=== PATIENT | male | born 1965 | race Caucasian/White ===

== ENCOUNTER 2016-12-04 10:21 | Emergency (ER) | payer OTHER, MEDICARE ==
--- NOTE | 2016-12-04 10:35 | ED GI/GU/ABDOMINAL COMPLAINT ---
History of Present Illness General Chief Complaint: General Adult Stated Complaint: ?CLOGGED G TUBE Source: patient, ASSISTANT LABORATORY DIRECTOR Exam Limitations: no limitations Vital Signs & Intake/Output Vital Signs & Intake/Output Vital Signs Date Time Temp Pulse Resp B/P Pulse O2 O2 Flow FiO2 Ox Delivery Rate 12/04 1246 98.2 92 22 120/78 98 Room Air 12/04 1025 97.7 113 20 117/71 96 Room Air Allergies Coded Allergies: No Known Allergies (12/04/16) Reconcile Medications Acetaminophen (Tylenol Extra Strength) 500 MG TABLET 2 TAB PO Q6 PRN PAIN ( Reported) Albuterol Sulfate (Proair Respiclick) 90 MCG AER.POW.BA 1-2 PUFF PO PRN BREATHING (Reported) Guaifenesin (Mucinex) 600 MG TAB.ER.12H 1 TAB PO BID COLD (Reported) Olanzapine (Zyprexa) 15 MG TABLET 1 TAB PO QPM MENTAL HEALTH (Reported) Omeprazole 40 MG CAPSULE.DR 1 CAP PO DAILY GI (Reported) Phenytoin (Dilantin) 100 MG CAPSULE 4 CAP PO DAILY SEIZURES (Reported) Phenytoin (Dilantin) 100 MG CAPSULE 3 CAP PO QPM SEIZURES (Reported) Trazodone HCl 50 MG TABLET 1 TAB PO QPM SLEEP (Reported) Triage Note: [facility] TO ED FROM [facility] WITH STAFF MEMBER FOR CLOGGED G TUBE. LAST FLUSHED WITH WATER AROUND 0800 THIS AM WITHOUT DIFFICULTY. Triage Nurses Notes Reviewed? yes Onset: Abrupt Duration: constant Timing: single episode today Severity Numbers: 5 Location: generalized abdomen Radiation: no radiation HPI: Patient is a 51-year-old male with a past medical history OF THROAT CANCER with G-tube placement administered at [facility] on October [address] Vera. IN WHICH ASSISTANT LABORATORY DIRECTOR STATES that patient's last G-TUBE flushing was approximately 0800 this morning it was GIVEN BY caregiver states that approximately 60 mL was able to be flushed WITH MORNING MEDICATIONS however suddenly became clogged. The G-tube was placed approximately 45 days ago due to patient's throat cancer history in which this was the first G-tube ever placed for patient Denies any abdominal pain nausea vomiting fever chills. Denies any mechanism or concerns of dislodging of G-tube or trauma (LACHO DEL REAL,VIRIDIANA) Past History Travel History Traveled to [place] past 21 day No Medical History Any Pertinent Medical History? see below for history Neurological: UNSPECIFIED INTRACRANIAL INJURY Cancer(s): THROAT Surgical History Surgical History: non-contributory Psychosocial History What is your primary language Maltese Tobacco Use: Never used Family History Hx Contributory? No (VIRIIDANA ADKINS) Review of Systems Review of Systems Constitutional: Reports: no symptoms. EENTM: Reports: no symptoms. Respiratory: Reports: no symptoms. Cardiovascular: Reports: no symptoms. GI: Reports: see HPI. Genitourinary: Reports: no symptoms. Musculoskeletal: Reports: no symptoms. Skin: Reports: no symptoms. Neurological/Psychological: Reports: no symptoms. Hematologic/Endocrine: Reports: no symptoms. Immunologic/Allergic: Reports: no symptoms. All Other Systems: Reviewed and Negative (VIRIDIANA ADKINS) Physical Exam Physical Exam General Appearance: no apparent distress, alert, comfortable Gastrointestinal: normal bowel sounds, soft, non-tender, INTACT INDWELLING g- TUBE NOTED Comments: Well-developed well-nourished person in no acute distress HEENT: Normal EENT exam, Neck: Supple, no lymphadenopathy, normal range of motion without pain or tenderness Cardiovascular: Regular rate and rhythms no murmurs rubs or gallops, normal JVP Respiratory: Chest nontender. No respiratory distress.breath sounds clear to auscultation bilaterally Extremity: No edema, no calf tenderness to palpation, normal and equal pulses. Neuro: Alert, motor sensory normal, Skin: No appreciable rash on exposed skin, skin is warm and dry. Psych: Mood and affect is normal, memory and judgment is normal. Core Measures ACS in differential dx? No Severe Sepsis Present: No Septic Shock Present: No (VIRIDIANA ADKINS) Progress Differential Diagnosis: g-TUBE MALFUNCTION, Plan of Care: Orders Procedure Date/time Status [id number] VIEW 12/04 1331 Active On initial physical examination patient had no concerns of dislodged G-tube. After multiple attempts of flushing the G-tube with a mixture of COKE AND water that this was unable to be to be successfully dislodged. Then using a cytology brush after multiple attempts the G-tube was not successfully dislodged. I discussed patient with who then advised replacement of the G-tube in which she was noted through old records that upon placement of the G-tube it was noted to be 16 Macedonian placement of G-tube in which had removed the G- tube successfully without complications in which there was noted significant distal aspect of the G-tube of solid material A 16 Macedonian Dejesus catheter was then reinserted to the ostomy site without complications and which 10 mL of sterile water syringe was then injected FOR THE balloon site. The G-tube was then And is currently x-rays with gastrostomy for confirmation of placement is pending Abdominal pad and taping was applied to secure the ostomy site in G-tube The G-tube was functional X-rays confirmed gastric placement I discussed with caregiver to follow up with oncology for further evaluation treatment Upon discharge patient looks well no apparent DISTRESS nontender abdomen and had corrected malfunction of G-tube (VIRIDIANA ADKINS) Diagnostic Imaging: Viewed by Me: Radiology Read. Radiology Impression: no acute abnormality Initial ED EKG: none Comments: PATIENT: BASHIR ALMAGUER PRESENT AGE: 51 PATIENT ACCOUNT NO: [id number] : 64 LOCATION: [facility] ORDERING PHYSICIAN: CORETTA RAYMUNDO MD SERVICE DATE: 12/04/16 EXAM TYPE: RAD - [id number] VIEW EXAMINATION: XR ABDOMEN CLINICAL INDICATION: Gastrostomy tube placement COMPARISON: None. TECHNIQUE: 50 mL of Gastrografin injected into the feeding tube FINDINGS: The outline of the feeding tube projects over the stomach. A balloon is noted within the lumen of the stomach which is opacified with dense contrast. There is no extravasation of contrast visible on this single film. There is a moderate amount stool. Gas pattern is overall nonspecific. Punctate density projecting over the right renal shadow in the mid pole region may represent nonobstructing stone. A tiny radiopaque density projects over the liver as well. IMPRESSION: Feeding tube located within the stomach. DICTATED BY: SHASHI KEMP MD DATE/TIME DICTATED:12/04/161449 DECK LID FITTER:CEE DATE/TIME TRANSCRIBED:12/04/16 (VIRIDIANA ADKINS) Departure Departure Disposition: HOME OR SELF CARE Condition: Stable Clinical Impression Primary Impression: Malfunction of gastrostomy tube Referrals: PATIENT HAS NO PRIMARY CARE DR (PCP/Family) Additional Instructions: As discussed continue home medications and normal feeding times as directed. Follow-up with oncologist this week for further evaluation treatment. If symptoms worsen return to emergency room. Departure Forms: Customer Survey General Discharge Information (VIRIDIANA ADKINS) PA/BENCH SHEAR OPERATOR Co-Sign Statement Statement: ED Attending supervision documentation- x I saw and evaluated the patient. I have also reviewed all the pertinent lab results and diagnostic results. I agree with the findings and the plan of care as documented in the PA's/BENCH SHEAR OPERATOR's documentation. [] I have reviewed the ED Record and agree with the PA's/BENCH SHEAR OPERATOR's documentation. [] Additions or exceptions (if any) to the PAs/BENCH SHEAR OPERATOR's note and plan are summarized below: [] (BREANNE MELGAR,CORETTA)
[2016-12-04] MEDS ORDERED: TRAZODONE HCL50 M1 PO (11:14)
[2016-12-04] MEDS ORDERED: MUCINEX600 M1 PO (11:15)
[2016-12-04] MEDS ORDERED: PROAIR RESPICL90 MCG PO (11:15)
[2016-12-04] MEDS ORDERED: TYLENOL EXTRA500 M2 PO (11:16)
[2016-12-04] MEDS ORDERED: DILANTIN100 M1 PO ×2 (11:16→11:17)
[2016-12-04] MEDS ORDERED: ZYPREXA15 M1 PO (11:17)
[2016-12-04] MEDS ORDERED: OMEPRAZOLE40 M1 PO (11:18)
[2016-12-04 12:46] VITALS: BP 120/78
--- NOTE | 2016-12-04 14:59 | RADIOLOGY REPORT ---
EXAMINATION: XR ABDOMEN CLINICAL INDICATION: Gastrostomy tube placement COMPARISON: None. TECHNIQUE: 50 mL of Gastrografin injected into the feeding tube FINDINGS: The outline of the feeding tube projects over the stomach. A balloon is noted within the lumen of the stomach which is opacified with dense contrast. There is no extravasation of contrast visible on this single film. There is a moderate amount stool. Gas pattern is overall nonspecific. Punctate density projecting over the right renal shadow in the mid pole region may represent nonobstructing stone. A tiny radiopaque density projects over the liver as well. IMPRESSION: Feeding tube located within the stomach.
== END 2016-12-04 15:16 ==
LOC: ERH 10:21
DX: K94.23 Gastrostomy malfunction (principal)
CPT/HCPCS: 74000

== ENCOUNTER 2017-01-05 19:25 | Emergency (ER) | payer OTHER, MEDICARE ==
[~2017-01-05 19:25] MED LIST: DILANTIN100 M1 PO; MUCINEX600 M1 PO; OMEPRAZOLE40 M1 PO; PROAIR RESPICL90 MCG PO; TRAZODONE HCL50 M1 PO; TYLENOL EXTRA500 M2 PO; ZYPREXA15 M1 PO
[2017-01-05 22:15] LABS: ABSOLUTE BASOPHIL COUNT 0 /CUMM (0.0-0.2); ABSOLUTE EOSINOPHIL COUNT 0.1 /CUMM (0.0-0.7); ABSOLUTE GRANULOCYTE CT 4.7 /CUMM (1.4-6.5); ABSOLUTE LYMPH COUNT 0.2 /CUMM (1.2-3.4); ABSOLUTE MONOCYTE COUNT 0.4 /CUMM (0.10-0.60); BASOPHIL % 0.4 % (0.0-2.0); HEMATOCRIT 36.2 % (42-52); MEAN CORPUSCULAR HGB 32.8 PG (27.0-31.0); MEAN CORPUSCULAR HGB CONC 33.3 G/DL (33.0-37.0); MEAN CORPUSCULAR VOLUME 98.3 FL (80.0-94.0); MEAN PLATELET VOLUME 7.2 FL (7.4-10.4); PLATELET COUNT 290 /CUMM (130-400); RBC DISTRIBUTION WIDTH 19.1 % (11.5-14.5); RED BLOOD CELL CT 3.68 /CUMM (4.70-6.10); WHITE BLOOD CELL COUNT 5.4 /CUMM (4.8-10.8)
--- NOTE | 2017-01-05 22:16 | ED GI/GU/ABDOMINAL COMPLAINT ---
History of Present Illness General Chief Complaint: Nausea, Vomiting, Diarrhea Stated Complaint: VOMTTING, NAUSEOUS Source: patient, family, W10 Exam Limitations: poor historian Vital Signs & Intake/Output Vital Signs & Intake/Output Vital Signs Date Time Temp Pulse Resp B/P Pulse O2 O2 Flow FiO2 Ox Delivery Rate 01/06 0010 97.1 91 16 124/79 96 Room Air 01/05 2000 96.8 93 16 130/80 95 Room Air Allergies Coded Allergies: No Known Allergies (12/04/16) Reconcile Medications Acetaminophen (Tylenol Extra Strength) 500 MG TABLET 2 TAB PO Q6 PRN PAIN ( Reported) Albuterol Sulfate (Proair Respiclick) 90 MCG AER.POW.BA 1-2 PUFF PO PRN BREATHING (Reported) Guaifenesin (Mucinex) 600 MG TAB.ER.12H 1 TAB PO BID COLD (Reported) Olanzapine (Zyprexa) 15 MG TABLET 1 TAB PO QPM MENTAL HEALTH (Reported) Omeprazole 40 MG CAPSULE.DR 1 CAP PO DAILY GI (Reported) Phenytoin (Dilantin) 100 MG CAPSULE 4 CAP PO DAILY SEIZURES (Reported) Phenytoin (Dilantin) 100 MG CAPSULE 3 CAP PO QPM SEIZURES (Reported) Trazodone HCl 50 MG TABLET 1 TAB PO QPM SLEEP (Reported) Triage Note: TRIAGE; PT TO ED, STATES THAT HE HAS A G-TUBE AND FOR THE PAST FEW MONTHS WHEN THE FEED HIM HE GETS SICK. STATES HE FEELS NAUSEOUS AT THIS TIME WELL. DENIES ANY ABD PAIN AT THIS TIME. PT HAS HX OF COMPLETE BLINDNESS. Triage Nurses Notes Reviewed? yes Onset: Gradual Duration: day(s): (1) Timing: no prior history Quality/Severity: vomiting Location: generalized abdomen Radiation: no radiation Activities at Onset: eating Past Sexual History: Unobtainable at this time HPI: Patient is a 51-year-old male with a G-tube presenting to the emergency department from a half-way with half-way workers with chief complaint of vomiting. According to half-way staff patient has been vomiting after trying to feed him through the G-tube for breakfast and lunch this morning. They did not try to feed him this evening for dinner because he was saying he was not feeling well. Patient denying any abdominal pain. No diarrhea. No documented fevers at the half-way. (SUSAN TRAN) Past History Travel History Traveled to [place] past 21 day No Medical History Any Pertinent Medical History? 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 No (SUSAN TRAN) Review of Systems Review of Systems Constitutional: Reports: no symptoms. Comments Review of systems: See HPI, All other systems negative. Constitutional, no chills fever or weight loss HEENT: No visual changes no sore throat no congestion Cardiovascular: No chest pain ,palpitation Skin, no jaundice no rashes Respiratory: No dyspnea cough sputum or hemoptysis GI: No diarrhea : No dysuria No hematuria Muscle skeletal: no back pain, no neck pain, Neurologic: No numbness no increased confusion Psych: No stress anxiety Immunology: No splenectomy or history of AIDS (SUSAN TRAN) Physical Exam Physical Exam General Appearance: well developed/nourished, no apparent distress, alert, awake , comfortable Gastrointestinal: normal bowel sounds, soft, non-tender Comments: Well-developed well-nourished person in no acute distress HEENT: Nose is atraumatic. Neck: Normal inspection Back: Nontender, no CVA tenderness. Cardiovascular: Regular rate and rhythms no murmurs rubs or gallops, normal JVP Respiratory: No respiratory distress.breath sounds clear to auscultation bilaterally Abdomen: Soft, nontender nondistended, no appreciable organomegaly. Normal bowel sounds. No ascites. G-tube in place. No surrounding erythema or edema. Extremity: No edema Neuro: Alert oriented x3 Skin: No appreciable rash on exposed skin, skin is warm and dry. Psych: Mood and affect is normal, memory and judgment is normal. Core Measures ACS in differential dx? No Severe Sepsis Present: No Septic Shock Present: No (SUSAN TRAN) Progress Differential Diagnosis: gastritis, viral syndrome, Sbo, overfeeding Plan of Care: Orders Procedure Date/time Status COMPREHENSIVE METABOLIC PANEL 01/05 2051 Complete CBC WITHOUT DIFFERENTIAL 01/05 2051 Complete Laboratory Tests 01/05/17 2209: Anion Gap 12, Estimated GFR > 60, BUN/Creatinine Ratio 22.5, Glucose 95, Calcium 10.2, Total Bilirubin 0.6, AST 32, ALT 40, Alkaline Phosphatase 101, Total Protein 7.3, Albumin 4.4, Globulin 2.9, Albumin/Globulin Ratio 1.5, CBC w Diff NO MAN DIFF REQ, RBC 3.68 L, MCV 98.3 H, MCH 32.8 H, RDW 19.1 H, MPV 7.2 L, Gran % 86.7 H, Lymphocytes % 4.1 L, Monocytes % 7.8, Eosinophils % 1.0, Basophils % 0.4, Absolute Granulocytes 4.7, Absolute Lymphocytes 0.2 L, Absolute Monocytes 0.4, Absolute Eosinophils 0.1, Absolute Basophils 0, PUBS MCHC 33.3 Initial ED EKG: none Comments: Abdomen soft nontender with normal active bowel sounds. Unlikely SPO. Minimal to no drainage from Dejesus bag with gravity. Patient was not nauseous and has not vomited once since arrival. Blood work is unremarkable. Caregivers for follow-up with a PCP or return for worsening symptoms. Patient nontoxic. Discussed with Dr. gutierrez and he agrees to plan. (SUSAN TRAN) Departure Departure Time of Disposition: 2351 Disposition: HOME OR SELF CARE Condition: Stable Clinical Impression Primary Impression: Vomiting Qualifiers: Vomiting type: unspecified Vomiting Intractability: non-intractable Nausea presence: unspecified Qualified Code: R11.10 - Vomiting, unspecified Referrals: UNKNOWN (PCP/Family) Additional Instructions: Follow-up with your primary care physician call to make an appointment. Continue tube feedings as scheduled. Return for worsening symptoms or concerns. Departure Forms: Customer Survey General Discharge Information (SUSAN TRAN) PA/AGENCY CASHIER Co-Sign Statement Statement: ED Attending supervision documentation- [] I saw and evaluated the patient. I have also reviewed all the pertinent lab results and diagnostic results. I agree with the findings and the plan of care as documented in the PA's/AGENCY CASHIER's documentation. x I have reviewed the ED Record and agree with the PA's/AGENCY CASHIER's documentation. [] Additions or exceptions (if any) to the PAs/AGENCY CASHIER's note and plan are summarized below: [] (BREANNE MELGAR,CORETTA)
[2017-01-05 22:19] LABS: GRANULOCYTE % 86.7 % (42.2-75.2)
[2017-01-06 00:10] VITALS: BP 124/79
== END 2017-01-06 00:10 ==
LOC: ERH 19:25
PROVIDERS: Emergency Medicine
DX: R11.10 Vomiting, unspecified (principal)

== ENCOUNTER 2017-02-08 10:47 | Inpatient (IN) | payer OTHER, MEDICARE ==
[~2017-02-08] VITALS: Ht 182.9 cm; Wt 72.6 kg
[2017-02-08] MEDS ORDERED: FENTANYL1 EAC3 TOP (11:30)
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
--- NOTE | 2017-02-08 12:43 | RADIOLOGY REPORT ---
EXAMINATION: XR PORTABLE CHEST CLINICAL INFORMATION: Weakness. COMPARISON: CT chest dated 01/27/2017. TECHNIQUE: Portable AP view of the chest was obtained. FINDINGS: Right-sided Port-A-Cath with the tip in the superior vena cava. New patchy focal groundglass opacity right midlung may represent evolving pneumonia in the appropriate clinical setting. Left lung is clear. Bony thorax is intact. Subtle calcific density projecting upon the right paratracheal region. IMPRESSION: New patchy airspace opacity right midlung may represent evolving pneumonia in the appropriate clinical setting. Follow-up chest x-ray after treatment recommended.
[2017-02-08 12:57] LABS: ABSOLUTE BASOPHIL COUNT 0 /CUMM (0.0-0.2); ABSOLUTE EOSINOPHIL COUNT 0 /CUMM (0.0-0.7); ABSOLUTE GRANULOCYTE CT 12.3 /CUMM (1.4-6.5); ABSOLUTE LYMPH COUNT 0.4 /CUMM (1.2-3.4); ABSOLUTE MONOCYTE COUNT 0.7 /CUMM (0.10-0.60); BASOPHIL % 0 % (0.0-2.0); EOSINOPHIL % 0.2 % (0-5); HEMATOCRIT 34.4 % (42-52); MEAN CORPUSCULAR HGB 33.4 PG (27.0-31.0); MEAN CORPUSCULAR HGB CONC 33.3 G/DL (33.0-37.0); MEAN CORPUSCULAR VOLUME 100.4 FL (80.0-94.0); MEAN PLATELET VOLUME 6.9 FL (7.4-10.4); RED BLOOD CELL CT 3.43 /CUMM (4.70-6.10); WHITE BLOOD CELL COUNT 13.4 /CUMM (4.8-10.8)
[2017-02-08 13:10] LABS: GRANULOCYTE % 91.9 % (42.2-75.2); PLATELET COUNT 401 /CUMM (130-400)
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
--- NOTE | 2017-02-08 16:01 | Admission Certification ---
Admission Certification Certification Statement - As attending physician, I certify that at the time of - admission, based on clinical presentation, severity of - symptoms, need for further diagnostic testing and - therapeutic interventions, and risk of adverse outcomes - without in-hospital treatment, in my clinical assessment, - this patient requires an acute hospital stay for a minimum - of two nights or longer. I have also considered psychsocial - factors such as support system, advanced age, financial - issues, cognitive issues, and failed out-patient treatments, - past re-admission history, safety of patient, and lack of - compliance as applicable. Specific rationale supporting this admission is: aspiration pneumonia.
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
[2017-02-08 23:00] VITALS: BP 104/60
[2017-02-09 06:43] VITALS: BP 102/58
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
[2017-02-09 08:50] LABS: ABSOLUTE BASOPHIL COUNT 0 /CUMM (0.0-0.2); ABSOLUTE EOSINOPHIL COUNT 0.1 /CUMM (0.0-0.7); ABSOLUTE GRANULOCYTE CT 3.5 /CUMM (1.4-6.5); ABSOLUTE LYMPH COUNT 0.4 /CUMM (1.2-3.4); ABSOLUTE MONOCYTE COUNT 0.4 /CUMM (0.10-0.60); BASOPHIL % 0.3 % (0.0-2.0); EOSINOPHIL % 1.5 % (0-5); GRANULOCYTE % 79.9 % (42.2-75.2); HEMATOCRIT 29.6 % (42-52); MEAN CORPUSCULAR HGB 33.7 PG (27.0-31.0); MEAN CORPUSCULAR HGB CONC 33.4 G/DL (33.0-37.0); MEAN CORPUSCULAR VOLUME 100.6 FL (80.0-94.0); MEAN PLATELET VOLUME 7.4 FL (7.4-10.4); PLATELET COUNT 327 /CUMM (130-400); RBC DISTRIBUTION WIDTH 13.5 % (11.5-14.5); RED BLOOD CELL CT 2.94 /CUMM (4.70-6.10)
[2017-02-09 09:04] LABS: WHITE BLOOD CELL COUNT 4.4 /CUMM (4.8-10.8)
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
[2017-02-09 14:43] VITALS: BP 118/70
--- NOTE | 2017-02-09 15:15 | PN- Att Addend ---
Attending MD Review Statement Attending Statement Attending MD Statement: examined this patient, discuss w/resident/PA/LICENSED LOAN OFFICER ASSISTANT, agreed w/resident/PA/LICENSED LOAN OFFICER ASSISTANT, reviewed EMR data (avail), discussed w/nursing Attending Assessment/Plan: Laboratory Tests 02/09/17 0700: Anion Gap 6, Estimated GFR > 60, BUN/Creatinine Ratio 15.0, Vitamin B12 527, Folate 8.2, CBC w Diff NO MAN DIFF REQ, RBC 2.94 L, MCV 100.6 H, MCH 33.7 H, RDW 13.5, MPV 7.4, Gran % 79.9 H, Lymphocytes % 9.1 L, Monocytes % 9.2, Eosinophils % 1.5, Basophils % 0.3, Absolute Granulocytes 3.5, Absolute Lymphocytes 0.4 L, Absolute Monocytes 0.4, Absolute Eosinophils 0.1, Absolute Basophils 0, PUBS MCHC 33.4 02/08/17 1900: Urinalysis HEAVY H, Urine Color YEL, Urine Clarity HAZY H, Urine pH 7.5, Ur Specific [place] 1.015, Urine Protein TRACE H, Urine Ketones TRACE H, Urine Nitrite POS H, Urine Bilirubin NEG, Urine Urobilinogen 0.2, Ur Leukocyte Esterase MOD H, Ur Microscopic SEDIMENT EXAMINED, Urine WBC 10-15 H, Urine Bacteria FEW H, Urine Hemoglobin NEG, Urine Glucose NEG Vital Signs Date Time Temp Pulse Resp B/P Pulse O2 O2 Flow FiO2 Ox Delivery Rate 02/09 1443 97.4 79 20 118/70 95 Room Air 02/09 0643 98.7 79 18 102/58 97 Room Air 02/08 2300 98.3 81 20 104/60 97 Room Air 02/08 2131 97.8 86 20 101/68 97 Room Air 02/08 1832 97.3 84 16 107/73 96 Room Air 02/08 1602 98.6 87 18 106/63 95 Patient seen and examined at bedside. Discussed with patient the care plan. Next Aspiration pneumonia-we'll continue with IV Unasyn for now. White count seems to be improving. Patient remains afebrile. Patient resumed on his tube feeds as well as seen by speech therapist and they recommended nectar thick liquids along with grounded diet. Disposition-possible discharge tomorrow on oral antibiotics. UTI-follow up on urine cultures. Continue on Unasyn.
--- NOTE | 2017-02-09 17:32 | Patient Discharge Instructions ---
Discharge Instructions General Discharge Information You were seen/treated for: Aspiration pneumonia Special Instructions: Please take medications as prescribed. Please continue tube feeding as instructed. Tube feeding instructions: CONTINUOUS FEED JEVITY 1.5, START RATE AT 50 ML/HR, THEN INCREASE TO A GOAL RATE OF 70 ML/HR CONTINOUS FEED, AND WATER FLUSH 225 ml EVERY 4 HRS. Please continue to try feeding by mouth as well with consistency of solids as mechanical ground food, and consistency of liquids as nectar thick liquid only until change suggested by a speech therapist. We could not locate your primary care physician at this point of time, we recommend you to be in touch or try to find a primary care physician as soon as possible and get a follow-up within 7-10 days of discharge. Follow-up with your oncologist Dr. Navarro within 1-2 weeks of discharge. Return to emergency if symptoms worsen. Diet Continue normal diet: No Recommended Diet: tube feedings as instructed, oral feedings, as instructed above Activity Full Activity/No Limits: No Activity Self Limited: Yes Acute Coronary Syndrome Inclusion Criteria At DC or during hospital stay patient has or had the following: ACS DIAGNOSIS No Discharge Core Measures Meds if any: Prescribed or Continued at Discharge Meds if any: NOT Prescribed or Continued at Discharge Congestive Heart Failure Inclusion Criteria At DC or during hospital stay patient has or had the following: CHF DIAGNOSIS No Discharge Core Measures Meds if any: Prescribed or Continued at Discharge Meds if any: NOT Prescribed or Continued at Discharge Cerebrovascular accident Inclusion Criteria At DC or during hospital stay patient has or had the following: CVA/TIA Diagnosis No Discharge Core Measures Meds if any: Prescribed or Continued at Discharge Meds if any: NOT Prescribed or Continued at Discharge Venous thromboembolism Inclusion Criteria VTE Diagnosis No VTE Type NONE VTE Confirmed by (Test) NONE Discharge Core Measures - Per Current guidelines, there needs to be overlap - treatment for the first 5 days of Warfarin therapy. - If discharged on Warfarin prior to 5 days of - overlap therapy, the patient will need to be - assessed for post discharge needs including - *Post discharge parental anticoagulation - *Warfarin and/or parental anticoagulation education - *Follow up date to check INR post discharge At least 5 days overlap therapy as Inpatient No Meds if any: Prescribed or Continued at Discharge Note: Overlap Therapy is Warfarin and Anticoagulant Meds if any: NOT Prescribed or Continued at Discharge
[2017-02-09 22:48] VITALS: BP 100/52
[2017-02-10 06:42] VITALS: BP 120/78
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
[2017-02-10 09:27] LABS: ABSOLUTE BASOPHIL COUNT 0 /CUMM (0.0-0.2); ABSOLUTE EOSINOPHIL COUNT 0.1 /CUMM (0.0-0.7); ABSOLUTE GRANULOCYTE CT 4.6 /CUMM (1.4-6.5); ABSOLUTE LYMPH COUNT 0.3 /CUMM (1.2-3.4); ABSOLUTE MONOCYTE COUNT 0.4 /CUMM (0.10-0.60); BASOPHIL % 0.3 % (0.0-2.0); EOSINOPHIL % 1.8 % (0-5); HEMATOCRIT 30.8 % (42-52); MEAN CORPUSCULAR HGB 33.6 PG (27.0-31.0); MEAN CORPUSCULAR HGB CONC 33.5 G/DL (33.0-37.0); MEAN CORPUSCULAR VOLUME 100.3 FL (80.0-94.0); MEAN PLATELET VOLUME 6.9 FL (7.4-10.4); RBC DISTRIBUTION WIDTH 13.8 % (11.5-14.5); RED BLOOD CELL CT 3.07 /CUMM (4.70-6.10); WHITE BLOOD CELL COUNT 5.4 /CUMM (4.8-10.8)
[2017-02-10 10:16] LABS: GRANULOCYTE % 83.8 % (42.2-75.2); PLATELET COUNT 403 /CUMM (130-400)
[2017-02-10] MEDS ORDERED: BACTRIM DS TAB1 EACH PO (11:13)
[2017-02-10] MEDS ORDERED: AUGMENTIN 875-1 EACH PO (14:21)
[2017-02-10 15:23] VITALS: BP 120/70
--- NOTE | 2017-02-10 15:53 | PN- Att Addend ---
Attending MD Review Statement Attending Statement Attending MD Statement: examined this patient, discuss w/resident/PA/ENVELOPE ADDRESSER, agreed w/resident/PA/ENVELOPE ADDRESSER, reviewed EMR data (avail), discussed w/nursing, discussed w/ case mgmt Attending Assessment/Plan: Laboratory Tests 02/10/17 0710: Anion Gap 8, Estimated GFR > 60, BUN/Creatinine Ratio 11.7, CBC w Diff NO MAN DIFF REQ, RBC 3.07 L, MCV 100.3 H, MCH 33.6 H, RDW 13.8, MPV 6.9 L, Gran % 83.8 H, Lymphocytes % 6.2 L, Monocytes % 7.9, Eosinophils % 1.8, Basophils % 0.3, Absolute Granulocytes 4.6, Absolute Lymphocytes 0.3 L, Absolute Monocytes 0.4, Absolute Eosinophils 0.1, Absolute Basophils 0, PUBS MCHC 33.5 Vital Signs Date Time Temp Pulse Resp B/P Pulse O2 O2 Flow FiO2 Ox Delivery Rate 02/10 1523 98.1 80 20 120/70 96 02/10 0642 98.2 85 18 120/78 96 Room Air 02/09 2248 98.6 80 20 100/52 95 Room Air Patient seen and examined at bedside. Discussed with patient the care plan. Aspiration pneumonia-on IV Unasyn and responding well. White count seems to be improving. Patient remains afebrile. Patient resumed on his tube feeds as well as seen by speech therapist and they recommended nectar thick liquids along with grounded diet. Will switch his abx to po augmenting tomorrow morning. UTI-urine cultures growing Klebsiella. Will be switched to augmentin starting tomorrow. Disoposition.-Patient will be discharged back to the facility on Monday. Cannot go back to the facility over the weekend as the nursing staff over there needs to be trained for the tube feeds.
[2017-02-10 22:54] VITALS: BP 100/60
[2017-02-11 06:54] VITALS: BP 100/56
[2017-02-11 08:17] LABS: ABSOLUTE BASOPHIL COUNT 0 /CUMM (0.0-0.2); ABSOLUTE EOSINOPHIL COUNT 0.1 /CUMM (0.0-0.7); ABSOLUTE GRANULOCYTE CT 4.2 /CUMM (1.4-6.5); ABSOLUTE LYMPH COUNT 0.5 /CUMM (1.2-3.4); ABSOLUTE MONOCYTE COUNT 0.5 /CUMM (0.10-0.60); BASOPHIL % 0.2 % (0.0-2.0); EOSINOPHIL % 1.7 % (0-5); GRANULOCYTE % 79.8 % (42.2-75.2); HEMATOCRIT 35.1 % (42-52); MEAN CORPUSCULAR HGB 33.5 PG (27.0-31.0); MEAN CORPUSCULAR HGB CONC 33.3 G/DL (33.0-37.0); MEAN CORPUSCULAR VOLUME 100.6 FL (80.0-94.0); MEAN PLATELET VOLUME 7.3 FL (7.4-10.4); PLATELET COUNT 451 /CUMM (130-400); RBC DISTRIBUTION WIDTH 13.5 % (11.5-14.5); RED BLOOD CELL CT 3.48 /CUMM (4.70-6.10); WHITE BLOOD CELL COUNT 5.3 /CUMM (4.8-10.8)
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
[2017-02-11 14:34] VITALS: BP 106/64
[2017-02-11 21:55] VITALS: BP 102/62
[2017-02-12 07:45] VITALS: BP 96/60
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
[2017-02-12 14:24] VITALS: BP 96/60
[2017-02-12 22:21] VITALS: BP 100/58
[2017-02-13 06:35] VITALS: BP 100/60
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
[2017-02-13 14:24] VITALS: BP 114/60
--- NOTE | 2017-02-13 14:51 | Discharge Summary ---
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 In the ED vitals showed a white count of 13.4, H&H 11.4/34, MCV 100, platelet count 401, sodium 133, glucose 100, negative troponins. UA showed trace proteins, trace ketones, nitrate positive, white count 10-15, few bacteria. Chest x-ray:New patchy airspace opacity right midlung may represent evolving pneumonia Patient was treated in the hospital for: # Sepsis secondary to aspiration pneumonia due to oral feeding instead of the PEG tube: Patient was admitted to the [facility] floorand started on IV fluids and IV Unasyn for aspiration pneumonia. He had a formal swallow eval and was recommended mechanical soft ground diet with nectar thin liquids to the mouth. PEG feeds were continued. Urine cultures were positive for Klebsiella pneumoniae. Patient remained afebrile in the hospital and the white count trended down.blood and sputum cultures did not have anygrowth. Patient was transitioned to by mouth Augmentinto to complete a total course of 7 days. #Tube feeding was restarted after nutritional consult, speech therapist was consulted for swallow evaluation suggested to keep the patient on nectar thick liquid and mechanical ground solids food but the patient is reluctant to have any kind of meal by mouth. Tube feeding instructions: CONTINUOUS FEEDS JEVITY 1.5 AT 50 ML/ HR , THEN INCREASE TO A GOAL RATE OF 70 ML/HR , WATER FLUSH 225 ml EVERY 4 HRS. Please continue to try feeding by mouth as well with consistency of solids as mechanical ground food, and consistency of liquids as nectar thick liquid only until change suggested by a speech therapist. #History of esophageal cancer: The last chemotherapy was finished on 12/15/16. (patient's oncologist) saw the patient in the hospital and decrease the fentanyl patch dose from 50 g to 25. No recommendations were made from the oncology point. Patient was asked to follow up with oncologist within 1-2 weeks of discharge. #Continued on home medications including phenytoin, Zyprexa, trazodone. #DVT prophylaxis with subcutaneous Lovenox #Full CODE STATUS Allergies: Coded Allergies: No Known Allergies (12/04/16) Disposition Summary Disposition Principal Diagnosis: Aspiration pneumonia Additional Diagnosis: History of esophageal cancer Discharge Disposition: home or self care Discharge Instructions General Discharge Information Code Status: Full Code Patient's Diet: Tube feeding instructions: JEVITY 1.5, WATER FLUSH 155 ml BEFORE AND AFTER FEEDING; TUBE FEEDING 420 ML ( 1- 3/4 CAN FOUR TIMES A DAY. Please continue to try feeding by mouth as well with consistency of solids as mechanical ground food, and consistency of liquids as nectar thick liquid only until change suggested by a speech therapist. Patient's Activity: as tolerated Follow-Up Instructions/Appts: Please continue to try feeding by mouth as well with consistency of solids as mechanical ground food, and consistency of liquids as nectar thick liquid only until change suggested by a speech therapist. We could not locate your primary care physician at this point of time, we recommend you to be in touch or try to find a primary care physician as soon as possible and get a follow-up within 7-10 days of discharge. Follow-up with your oncologist Dr. Navarro within 1-2 weeks of discharge. Medications at Discharge Discharge Medications: Stop taking the following medications: Phenytoin (Dilantin) 100 MG CAPSULE ORAL DAILY Phenytoin (Dilantin) 100 MG CAPSULE ORAL Every night Fentanyl (Fentanyl) 50 MCG/HOUR PATCH.TD72 On the skin Every 3 days Start taking the following new medications: Phenytoin (Phenytoin) 100 MG/4 ML ORAL.SUSP 300 Milligram PEG TUBE Every night Days = 30 No Refills Comments: Last Taken:02/15/17 Time:2000 Phenytoin (Phenytoin) 100 MG/4 ML ORAL.SUSP 400 Milligram PEG TUBE DAILY Days = 30 No Refills Comments: Last Taken:02/16/17 Time:1000 Fentanyl (Fentanyl) 25 MCG/HOUR PATCH.TD72 25 Microgram On the skin Every 3 days as needed for SEVERE PAIN Qty = 15 No Refills Instructions: USE ONLY ONCE IN THREE DAYS, CAN LAST FOR 72 HOURS. DO NOT USE MORE OFTEN THAN EVERY 72 HOURS. Comments: Last Taken:02/14/17 Time:1400 The following medications have been changed: Old: Trazodone HCl (Trazodone HCl) 50 MG TABLET 1 Tablet ORAL Every night New: Trazodone HCl (Trazodone HCl) 50 MG TABLET 1 Tablet PEG TUBE Every night Days = 30 Comments: Last Taken:02/15/17 Time:1999 Old: Olanzapine (Zyprexa) 15 MG TABLET 1 Tablet ORAL Every night New: Olanzapine (Zyprexa) 15 MG TABLET 1 Tablet PEG TUBE Every night Days = 30 Comments: Last Taken:02/15/17 Time:1999 Copies To: DEVIKA MELGAR,FABIAN
[2017-02-13 22:34] VITALS: BP 100/60
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
[2017-02-14 06:55] VITALS: BP 104/60
[2017-02-14 14:42] VITALS: BP 102/60
[2017-02-14 22:48] VITALS: BP 112/68
[2017-02-15 06:30] VITALS: BP 110/64
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
[2017-02-15 14:45] VITALS: BP 110/70
[2017-02-15 22:28] VITALS: BP 112/70
[2017-02-16 07:30] VITALS: BP 110/70
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
[2017-02-16] MEDS ORDERED: FENTANYL1 EAC2 TOP (11:08)
[2017-02-16 11:16] VITALS: BP 110/70
[2017-02-16] MEDS ORDERED: TRAZODONE HCL50 M1 PEG (11:24)
[2017-02-16] MEDS ORDERED: ZYPREXA15 M1 PEG (11:24)
[2017-02-16] MEDS ORDERED: PHENYTOIN100 MG/4 M PEG ×2 (11:24)
[2017-02-16 14:51] VITALS: BP 108/76
== END 2017-02-16 16:10 | DRG 178 ==
LOC: ENRESERVTM → ENRESERVDT → ERH 10:47 → ENPENDDIS 13:24 → ERHI 13:24 → 2NA 13:24
PROVIDERS: Physician Assistant; Student in an Organized Health Care Education/Training Program; ADMIT Internal Medicine
DX: J69.0 Pneumonitis due to inhalation of food and vomit (principal); E87.1 Hypo-osmolality and hyponatremia; C10.9 Malignant neoplasm of oropharynx, unspecified; Z87.820 Personal history of traumatic brain injury; H54.8 Legal blindness, as defined in USA; F17.200 Nicotine dependence, unspecified, uncomplicated; Z93.1 Gastrostomy status; Z85.01 Personal history of malignant neoplasm of esophagus
CPT/HCPCS: 2NASP; 36415; 74230; 81001; 82436; 87040; 87070; 87086; 93005; 93010; 96361; 96374; 96375; J1650; J1815; J7042

== ENCOUNTER 2017-03-15 18:53 | Emergency (ER) | payer OTHER, MEDICARE ==
[~2017-03-15] VITALS: Ht 182.9 cm; Wt 68.0 kg
[~2017-03-15 18:53] MED LIST changes: +AUGMENTIN 875-1 EACH PO; +BACTRIM DS TAB1 EACH PO; +FENTANYL1 EAC2 TOP; +FENTANYL1 EAC3 TOP; +PHENYTOIN100 MG/4 M PEG; +TRAZODONE HCL50 M1 PEG; +ZYPREXA15 M1 PEG
[2017-03-15 19:07] VITALS: BP 114/83
--- NOTE | 2017-03-15 20:18 | ED GENERAL ADULT ---
History of Present Illness General Chief Complaint: General Adult Stated Complaint: PT FEEDING TUBE IS CLOGGED Source: patient, old records, friend (waste salvager) Exam Limitations: no limitations Vital Signs & Intake/Output Vital Signs & Intake/Output Vital Signs Date Time Temp Pulse Resp B/P B/P Pulse O2 O2 Flow FiO2 Mean Ox Delivery Rate 03/15 1907 97.0 95 16 114/83 98 Room Air Allergies Coded Allergies: No Known Allergies (12/04/16) Reconcile Medications Fentanyl 25 MCG/HOUR PATCH.TD72 25 MCG TOP Q3D PRN SEVERE PAIN USE ONLY ONCE IN THREE DAYS, CAN LAST FOR 72 HOURS. DO NOT USE MORE OFTEN THAN EVERY 72 HOURS. Olanzapine (Zyprexa) 15 MG TABLET 1 TAB PEG QPM MENTAL HEALTH Phenytoin 100 MG/4 ML ORAL.SUSP 300 MG PEG QPM SEIZURE Phenytoin 100 MG/4 ML ORAL.SUSP 400 MG PEG DAILY SEIZURE Trazodone HCl 50 MG TABLET 1 TAB PEG QPM SLEEP Triage Note: TRIAGE: FROM [facility] FOR CLOGGED G-TUBE, STAFF UNABLE TO CLEAR IT WITH [facility]. STAFF BELIEVES IT WAS PLACED AT [facility]. SKIN AROUND SITE APPEARS INTACT AND NO S/S INFX. DENIES PAIN. PLACED FOUR MONTHS AGO DUE TO THROAT CA, COMPLETED CHEMO AND RAD TX. LEGALLY BLIND. ABLE TO CONVERSATE WITH STAFF WITH HOARSE VOICE. Triage Nurses Notes Reviewed? yes Onset: Abrupt Duration: hour(s): (7), constant Timing: recent history Injury Environment: home Severity: mild Severity Numbers: 1 No Modifying Factors: none Associated Symptoms: denies HPI: 51-year-old male with history of throat cancer requiring a G-tube that was placed 4 months ago presents with the halfway waste salvager after they state the feeding tube became clogged at around 1 PM this afternoon. The patient has had history of similar episodes in the past the attempted to clear with [facility] without improvement. The patient otherwise is without any complaints no fever no chills no rashes to his skin there are no modifying factors or associated symptoms otherwise. This is happened before requiring temporary Dejesus catheter placement . (DOUGIE DEL REAL,VIRIDIANA) Past History Travel History Traveled to [place] past 21 day No Medical History Any Pertinent Medical History? 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 No (VIRIDIANA ZHOU) Review of Systems Review of Systems Constitutional: Reports: see HPI. All Other Systems: Reviewed and Negative Comments Review of systems: See HPI, All other systems negative. Constitutional, no chills no fever, no malaise HEENT: No visual changes no sore throat no congestion Cardiovascular: No chest pain , no palpitation Skin: no rashes, no change in skin Respiratory: No dyspnea no cough GI: No nausea no vomiting, no diarrhea : No dysuria No hematuria Muscle skeletal: No joint pain, no back pain, no neck pain, Neurologic: no headache Psych: No stress no depression,. Heme/endocrine: No bruising no bleeding Immunology: No lymphadenopathy (VIRIDIANA ZHOU) Physical Exam Physical Exam General Appearance: well developed/nourished, no apparent distress, alert Comments: Well-developed well-nourished patient in no apparent distress. HEENT: Atraumatic, extraocular motion intact Neck: Supple, FROM Back: FROM Cardiovascular: Regular rate and rhythms no murmurs rubs or gallops, Respiratory: No respiratory distress. Patient speaking in full complete sentences. Breath sounds clear to auscultation bilaterally: NO W/R/R Abdomen: Soft Nontender G-tube in place no surrounding erythema induration or fluctuance Nontender normal bowel sounds Extremities: full range of motion Neuro: awake, alert, and oriented to person, place and time. There were no obvious focal neurologic abnormalities. Skin: Warm & dry;No appreciable rash on exposed skin Psych: Mood affect normal, normal memory normal judgment. Core Measures ACS in differential dx? No CVA/TIA Diagnosis: No Severe Sepsis Present: No Septic Shock Present: No (VIRIDIANA ZHOU) Progress Differential Diagnoses I considered the following diagnoses in my evaluation of the patient: Feeding tube dysfunction obstruction cellulitis Plan of Care: The tube was irrigated/flushed successfully. Patient tolerated procedure well discussed the plan of care need for close follow-up with primary care, return anytime sooner with any palpitations or if he redevelops difficulty with feeding tube use Initial ED EKG: none (VIRIDIANA ZHOU) Departure Departure Time of Disposition: 2021 Disposition: HOME OR SELF CARE Condition: Stable Clinical Impression Primary Impression: Feeding tube dysfunction Referrals: FABIAN FORTUNE MD (PCP/Family) Additional Instructions: Follow-up with your primary care physician return if you have any complications Departure Forms: Customer Survey General Discharge Information (VIRIDIANA ZHOU) PA/FISCAL CLERK Co-Sign Statement Statement: ED Attending supervision documentation- [] I saw and evaluated the patient. I have also reviewed all the pertinent lab results and diagnostic results. I agree with the findings and the plan of care as documented in the PA's/FISCAL CLERK's documentation. [X] I have reviewed the ED Record and agree with the PA's/FISCAL CLERK's documentation. [] Additions or exceptions (if any) to the PAs/FISCAL CLERK's note and plan are summarized below: [] (JOHN PAUL MELGAR,PA) Critical Care Note Critical Care Note Critical Care Time: non-applicable (VIRIDIANA ZHOU)
== END 2017-03-15 20:30 ==
LOC: ERH 18:53
DX: K94.23 Gastrostomy malfunction (principal)
CPT/HCPCS: 99282

== ENCOUNTER 2018-02-12 12:16 | Emergency (ER) | payer OTHER, MEDICARE ==
[~2018-02-12 12:16] MED LIST changes: +ATIVAN0.5 M1 PO; +BUDESONIDE0.25 MG/1 INH/SOL; +LEVAQUIN500 M1 PO; +OXYCODONE HCL5 M1 PO; +PREDNISOLO15 MG/5 M4 G TUBE; +PROCHLORPERAZIN10 MG PO; +TUMS X-STR300 MG PO; +ZOFRAN8 M1 PO
--- NOTE | 2018-02-12 12:51 | ED GI/GU/ABDOMINAL COMPLAINT ---
History of Present Illness General Chief Complaint: General Adult Stated Complaint: FEEDING TUBE REDNESS AND PAIN Source: patient Exam Limitations: no limitations Vital Signs & Intake/Output Vital Signs & Intake/Output Vital Signs Date Time Temp Pulse Resp B/P B/P Pulse O2 O2 Flow FiO2 Mean Ox Delivery Rate 02/12 1745 98.2 90 18 130/76 98 Room Air 02/12 1738 Room Air 02/12 1438 97.4 91 18 124/74 97 Room Air 02/12 1235 Room Air 02/12 1222 97.0 96 18 122/70 96 Room Air Allergies Coded Allergies: No Known Allergies (05/22/17) Reconcile Medications Acetaminophen (Tylenol Extra Strength) 500 MG TABLET 2 TAB PO Q6 PRN PAIN ( Reported) Albuterol Sulfate (Proair Respiclick) 90 MCG AER.POW.BA 1-2 PUFF PO Q4-6 PRN PRN SHORTNESS OF BREATH (Reported) Amoxicillin/Potassium Clav (Augmentin 875-125 Tablet) 875 MG-125 MG TABLET 1 TAB PO BID cellulitis Budesonide 0.25 MG/2 ML AMPUL.NEB 1 Vial INH/SUNSHINE BID BREATHING PROBLEMS ( Reported) Guaifenesin (Mucinex) 600 MG TAB.ER.12H 1 TAB PO BID PRN CONGESTION (Reported ) Lorazepam (Ativan) 0.5 MG TABLET 1 TAB PO BIDP PRN NAUSEA/VOMITING (Reported) Olanzapine (Zyprexa) 15 MG TABLET 1 TAB PEG QPM MENTAL HEALTH Oxycodone HCl 5 MG TABLET 1-2 TAB PO Q4-6 PRN PRN PAIN (Reported) Phenytoin (Dilantin) 100 MG CAPSULE 4 CAP PO DAILY SEIZURES (Reported) Phenytoin (Dilantin) 100 MG CAPSULE 3 CAP PO QPM SEIZURES (Reported) Prochlorperazine Maleate 10 MG TABLET 1 TAB PO Q6 PRN NAUSEA/VOMITING ( Reported) Trazodone HCl 50 MG TABLET 1 TAB PEG QPM SLEEP Triage Note: PT BIBA FROM HOME WITH C/O 8/10 PAIN AND REDNESS TO PEG TUBE SITE. EMS REPORTS THAT STAFF IN [facility] ATTEMPTED TO FLUSH TUBE AND LEAKING WAS NOTED AROUND SITE. VSS EN ROUTE Triage Nurses Notes Reviewed? yes Onset: Abrupt Duration: unknown duration Timing: recent history Radiation: no radiation Activities at Onset: none No Modifying Factors: none HPI: 52-year-old male comes into the emergency room for further evaluation of redness around his G-tube site. His caregiver came in today and found that there was some drainage out of it and he did not seem to be flushing appropriately. He has not had any fever chills or vomiting. He was placed a couple months ago. It was tender to touch. Brought in for further evaluation. (Hussain Soriano) Past History Travel History Traveled to [place] past 21 day No Medical History Any Pertinent Medical History? see below for history Neurological: UNSPECIFIED INTRACRANIAL INJURY EENT: blindness Cardiovascular: NONE Respiratory: NONE Gastrointestinal: G TUBE Hepatic: NONE Renal: NONE Musculoskeletal: NONE Psychiatric: schizophrenia Endocrine: NONE Blood Disorders: NONE Cancer(s): THROAT MALIGNANT NEOPLASM OF PHARYNX DIRECTOR HUMAN SERVICES/Reproductive: NONE History of MRSA: No History of VRE: No History of CDIFF: No Surgical History Surgical History: non-contributory Psychosocial History Who do you live with Patient/Self Services at Home Home Health Aide What is your primary language Swedish Tobacco Use: Quit >30 days ago ETOH Use: denies use Family History Hx Contributory? No (Hussain Soriano) Review of Systems Review of Systems Constitutional: Reports: no symptoms. EENTM: Reports: no symptoms. Respiratory: Reports: no symptoms. Cardiovascular: Reports: no symptoms. GI: Reports: see HPI. Genitourinary: Reports: no symptoms. Musculoskeletal: Reports: no symptoms. Skin: Reports: see HPI. Neurological/Psychological: Reports: no symptoms. Hematologic/Endocrine: Reports: no symptoms. Immunologic/Allergic: Reports: no symptoms. All Other Systems: Reviewed and Negative (Hussain Soriano) Physical Exam Physical Exam General Appearance: well developed/nourished, alert, awake Head: atraumatic Eyes: Bilateral: normal appearance. Ears, Nose, Throat, Mouth: hearing grossly normal, moist mucous membrane Neck: normal inspection Respiratory: no respiratory distress Gastrointestinal: soft, some erythema around the G-tube site, induration, tenderness with palpation Back: normal inspection Neurologic/Psych: awake, alert Skin: intact Core Measures ACS in differential dx? No Sepsis Present: No Sepsis Focused Exam Completed? No (Hussain Soriano) Progress Differential Diagnosis: cellulitis, abscess, G-tube displacement, Plan of Care: Orders Procedure Date/time Status C-REACTIVE PROTEIN 02/12 1228 Complete COMPREHENSIVE METABOLIC PANEL 02/12 1228 Complete CBC WITHOUT DIFFERENTIAL 02/12 1228 Complete Laboratory Tests 02/12/18 1247: Anion Gap 10, Estimated GFR > 60, BUN/Creatinine Ratio 30.0 H, Glucose 99, Calcium 9.7, Total Bilirubin 0.4, AST 13 L, ALT 21, Alkaline Phosphatase 68, C- Reactive Prot, Quant > 9.0 H, Total Protein 6.7, Albumin 3.7, Globulin 3.0, Albumin/Globulin Ratio 1.2, CBC w Diff NO MAN DIFF REQ, RBC 3.71 L, MCV 95.5 H , MCH 31.9 H, MCHC 33.4, RDW 13.6, MPV 7.4, Gran % 82.4 H, Lymphocytes % 8.2 L, Monocytes % 8.2, Eosinophils % 0.9, Basophils % 0.3, Absolute Granulocytes 7.9 H, Absolute Lymphocytes 0.8 L, Absolute Monocytes 0.8 H, Absolute Eosinophils 0.1, Absolute Basophils 0 Initial ED EKG: none Comments: 02/12/2018 5:24:56 PM Patient clinically looks well. Patient is in no apparent distress. Patient is nontoxic-appearing. G-tube was replaced by IR. Some mild erythema around the site. Started on oral antibiotics. Consent was obtained by the conservator who is the brother by IR. He clinically looks well. He is in no apparent distress. (Hussain Soriano) Departure Departure Disposition: HOME OR SELF CARE Condition: Stable Clinical Impression Primary Impression: G-tube site cellulitis Secondary Impressions: Gastrostomy tube dysfunction Referrals: Mahogany Mata MD (PCP/Family) Additional Instructions: Take Augmentin as prescribed. Resume feeding through the G-tube. Return if any other concerns worsening symptoms. Please go over all results of today's visit with your primary care doctor. Contact your primary care doctor to let them know you were here in the emergency room. There may be nonspecific findings which may not be related to your visit today here in the emergency room but may require further evaluation and chronic monitoring by your primary care doctor. If you had a laceration today the chance of foreign body always remains. You should follow-up with your primary care doctor for recheck in 3-5 days for a wound check. If you had an x-ray done there is a chance that a fracture could have been missed on initial read and you should follow-up with your primary care doctor for repeat x-rays if symptoms persist. If your blood pressure was elevated here in the emergency room please have rechecked by isabel primary care doctor within the next 48. If you were prescribed a narcotic here in the emergency room or any type of controlled substances you're not allowed to drive while taking this medication or operate any type of heavy machinery. Narcotics can make you feel lightheaded dizziness nausea and can cause constipation. You may need to pickler helper a stool softener. Thank you for choosing [facility] emergency room. Please return to the emergency room immediately if you have any other concerns worsening of symptoms. Departure Forms: Customer Survey General Discharge Information Prescriptions: Current Visit Scripts Amoxicillin/Potassium Clav (Augmentin 875-125 Tablet) 1 TAB PO BID #14 TAB (Hussain Soriano) PA/PHILOSOPHY PROFESSOR Co-Sign Statement Statement: ED Attending supervision documentation- I saw and evaluated the patient. I have also reviewed all the pertinent lab results and diagnostic results. I agree with the findings and the plan of care as documented in the PA's/PHILOSOPHY PROFESSOR's documentation. x I have reviewed the ED Record and agree with the PA's/PHILOSOPHY PROFESSOR's documentation. [] Additions or exceptions (if any) to the PAs/PHILOSOPHY PROFESSOR's note and plan are summarized below: [] (Katelyn MELGAR,Erwin)
[2018-02-12 12:54] LABS: ABSOLUTE BASOPHIL COUNT 0 /CUMM (0.0-0.2); ABSOLUTE EOSINOPHIL COUNT 0.1 /CUMM (0.0-0.7); ABSOLUTE GRANULOCYTE CT 7.9 /CUMM (1.4-6.5); ABSOLUTE LYMPH COUNT 0.8 /CUMM (1.2-3.4); ABSOLUTE MONOCYTE COUNT 0.8 /CUMM (0.10-0.60); BASOPHIL % 0.3 % (0.0-2.0); EOSINOPHIL % 0.9 % (0-5); GRANULOCYTE % 82.4 % (42.2-75.2); HEMATOCRIT 35.4 % (42-52); MEAN CORPUSCULAR HGB 31.9 PG (27.0-31.0); MEAN CORPUSCULAR HGB CONC 33.4 G/DL (33.0-37.0); MEAN CORPUSCULAR VOLUME 95.5 FL (80.0-94.0); MEAN PLATELET VOLUME 7.4 FL (7.4-10.4); PLATELET COUNT 355 /CUMM (130-400); RBC DISTRIBUTION WIDTH 13.6 % (11.5-14.5); RED BLOOD CELL CT 3.71 /CUMM (4.70-6.10); WHITE BLOOD CELL COUNT 9.6 /CUMM (4.8-10.8)
--- NOTE | 2018-02-12 14:18 | CT SCAN REPORT ---
EXAMINATION: CT ABDOMEN AND PELVIS WITHOUT CONTRAST CLINICAL INFORMATION: Induration and redness around G-tube. Evaluate for abdominal wall abscess. COMPARISON: Abdomen CT from 09/26/[address] from 01/27/2017. TECHNIQUE: Multidetector volumetric imaging was performed from the superior aspect of the liver through the pubic symphysis. Sagittal and coronal reformatted images were obtained on the technologist's workstation. DLP: 312 mGy-cm FINDINGS: LUNG BASES: Again noted is a bulla of the right middle lobe. Scattered endobronchial secretions within the visualized right middle lobe and lingula. No pleural effusion. LIVER, GALLBLADDER, AND BILIARY TREE: Liver has normal size, contour and attenuation. Gallbladder contains calcified stones. No gallbladder wall edema or pericholecystic inflammatory change. PANCREAS: Unremarkable. SPLEEN: Unremarkable. ADRENAL GLANDS: Unremarkable. KIDNEYS AND URETERS: The kidneys are normal in size, shape, and attenuation. No hydronephrosis, hydroureter, or calculi seen. No perinephric stranding. BLADDER: Unremarkable. GASTROINTESTINAL TRACT: Small, sliding-type hiatal hernia. Loops of bowel are normal in caliber. Pancolonic diverticulosis without diverticulitis. No acute inflammation or obstruction along the gastrointestinal tract. No ascites or pneumoperitoneum. ABDOMINAL WALL: Mild edema within subcutaneous tissues around the gastrostomy tube tract. The balloon of the G-tube appears underinflated and is located within the subcutaneous tissue compartment rather than within the lumen of the stomach. There is a trace amount of fluid within the G-tube tract. No abscess is identified on these noncontrast images. LYMPH NODES: Within the visualized lower mediastinum, a small paraesophageal lymph node is 0.8 cm short axis dimension. No pathologic sized lymph nodes in the abdomen or pelvis. No inguinal lymphadenopathy. VASCULAR: Mild atherosclerotic calcification of abdominal aorta without aneurysm. PELVIC VISCERA: Prostate gland is grossly unremarkable. No pelvic free fluid. OSSEOUS STRUCTURES: No suspicious osseous lesions. Mild dextrocurvature of the lumbar spine. Lumbar vertebra have normal height and alignment. IMPRESSION: 1. Trace amount of fluid along the gastrostomy tube tract. The balloon tip is underinflated, located within the subcutaneous tissue compartment and not within the stomach. Recommend replacement or repositioning of the G-tube. 2. Cholelithiasis without acute cholecystitis. 3. Pancolonic diverticulosis. 4. There are some endobronchial secretions within the visualized right middle lobe and lingula. Query if patient has had any recent clinical symptoms/signs of airway inflammation/bronchitis.
[2018-02-12] MEDS ORDERED: AUGMENTIN 875-1 EACH PO (17:19)
--- NOTE | 2018-02-12 17:19 | INTERVENTIONAL RADIOLOGY RPT ---
EXAMINATION: GASTROSTOMY TUBE REINSERT CLINICAL INFORMATION: 52-year-old male with dislodged gastrostomy tube. Advancement of the gastrostomy tube in the emergency room was unsuccessful. Request made for replacement of gastrostomy tube. Existing gastrostomy tube was removed in the emergency room prior to the patient being transported to the IR suite. COMPARISON: Same day CT abdomen pelvis and G-tube repositioning 10/24/2017 Interventional radiologist: Anibal De Anda M.D. Medication administration: None required for today's procedure. Contrast administration: 20 mL of Optiray 320 FLUOROSCOPY TIME: 0.5 minutes DOSE AREA PRODUCT: 1.9 Gy-cm2 (velasquez-centimeter squared) Procedure in Detail: Informed consent was obtained from the patient's brother prior to the procedure. During this process, the procedure and potential alternatives were explained along with the intended outcome and benefits. The risks of the procedure including the possibility of an unsuccessful procedure, as well as the risk of not doing the procedure were discussed. The patient's brother was given the opportunity to ask questions regarding the procedure. A consent form which document this discussion was placed in the medical record. Following informed consent the patient was placed supine on the fluoroscopic table. The abdomen was prepped and draped in usual sterile fashion. A time out procedure was performed. A yarn texture machine operator image was obtained. A glidewire and 5-Romansh dilator were used to cannulate the old tract. Contrast injection verified positioning within the stomach. A new 16 Romansh BRANDI gastrostomy tube was advanced over the wire and into the stomach. Contrast injection once again verified proper positioning. The wire was removed and the balloon was insufflated with 5 mL sterile water. Contrast was injected in the tube to confirm location. The patient tolerated procedure well without complications. IMPRESSION: Successful reinsertion of gastrostomy tube for a new 16 Romansh BRANDI G-tube. Contrast injection verified proper positioning of the tube within the stomach. Tube ready to use at this time.
[2018-02-12 17:45] VITALS: BP 130/76
== END 2018-02-12 17:47 ==
LOC: ERH 12:16
PROVIDERS: Physician Assistant Medical
DX: K94.29 Other complications of gastrostomy (principal); K94.22 Gastrostomy infection; L03.311 Cellulitis of abdominal wall; Z85.819 Personal history of malignant neoplasm of unspecified site of lip, oral cavity, and pharynx; K80.20 Calculus of gallbladder without cholecystitis without obstruction
CPT/HCPCS: 74176

== ENCOUNTER 2018-04-08 16:19 | Emergency (ER) | payer OTHER, MEDICARE ==
[~2018-04-08] VITALS: Ht 182.9 cm; Wt 77.1 kg
--- NOTE | 2018-04-08 17:23 | ED MVC/FALL/TRAUMA COMPLAINT ---
History of Present Illness General Chief Complaint: Fall Stated Complaint: FELL OUT OF BED TWICE BUMP TO BACK HEAD Source: patient, AID Exam Limitations: no limitations Vital Signs & Intake/Output Vital Signs & Intake/Output Vital Signs Date Time Temp Pulse Resp B/P B/P Pulse O2 O2 Flow FiO2 Mean Ox Delivery Rate 04/08 2131 98.2 70 17 116/74 98 Room Air 04/08 2012 98.4 87 16 110/67 97 Room Air 04/08 1622 96.0 89 18 120/82 94 Room Air ED Intake and Output 04/09 0000 04/08 1200 Intake Total Output Total Balance Patient 170 lb Weight Allergies Coded Allergies: No Known Allergies (05/22/17) Reconcile Medications Acetaminophen (Tylenol Extra Strength) 500 MG TABLET 2 TAB PO Q6 PRN PAIN ( Reported) Albuterol Sulfate (Proair Respiclick) 90 MCG AER.POW.BA 1-2 PUFF PO Q4-6 PRN PRN SHORTNESS OF BREATH (Reported) Amoxicillin/Potassium Clav (Augmentin 875-125 Tablet) 875 MG-125 MG TABLET 1 TAB PO BID cellulitis Budesonide 0.25 MG/2 ML AMPUL.NEB 1 Vial INH/SUNSHINE BID BREATHING PROBLEMS ( Reported) Guaifenesin (Mucinex) 600 MG TAB.ER.12H 1 TAB PO BID PRN CONGESTION (Reported ) Lorazepam (Ativan) 0.5 MG TABLET 1 TAB PO BIDP PRN NAUSEA/VOMITING (Reported) Olanzapine (Zyprexa) 15 MG TABLET 1 TAB PEG QPM MENTAL HEALTH Oxycodone HCl 5 MG TABLET 1-2 TAB PO Q4-6 PRN PRN PAIN (Reported) Phenytoin (Dilantin) 100 MG CAPSULE 4 CAP PO DAILY SEIZURES (Reported) Phenytoin (Dilantin) 100 MG CAPSULE 3 CAP PO QPM SEIZURES (Reported) Prochlorperazine Maleate 10 MG TABLET 1 TAB PO Q6 PRN NAUSEA/VOMITING ( Reported) Trazodone HCl 50 MG TABLET 1 TAB PEG QPM SLEEP Triage Note: 52 YEAR OLD 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 PT HIT TOP OF HIS HEAD ON THE FLOOR , DENIES LOC, N/V/D Triage Nurses Notes Reviewed? yes Onset: Abrupt Duration: day(s): (1), constant, continues in ED Timing: multiple episodes today Severity: mild, moderate Severity Numbers: 5 Injuries/Fall Location: head Method of Injury: fall Loss of Consciousness: no loss of consciousness No Modifying Factors: none HPI: 51-year-old male history of schizophrenia, blindness presented for evaluation after a fall. According to the patient's aid patient had been walking on a hardwood floor with socks slid fell and hit his head. This occurred on 2 times. Both falls were mechanical. He did hit his head both times there is no loss of consciousness. Patient is able to get up on his own. He denies any headache neck pain changes in vision vomiting or any injuries. He is feeling well he has no concerns at status is at baseline. He does not take blood thinners. (Dion Miller) Past History Travel History Traveled to [place] past 21 day No Medical History Any Pertinent Medical History? see below for history Neurological: UNSPECIFIED INTRACRANIAL INJURY EENT: blindness Cardiovascular: NONE Respiratory: NONE Gastrointestinal: G TUBE Hepatic: NONE Renal: NONE Musculoskeletal: NONE Psychiatric: schizophrenia Endocrine: NONE Blood Disorders: NONE Cancer(s): THROAT MALIGNANT NEOPLASM OF PHARYNX EXAMINER OF CURRENCY/Reproductive: NONE History of MRSA: No History of VRE: No History of CDIFF: No Surgical History Surgical History: non-contributory Psychosocial History Who do you live with Patient/Self Services at Home Home Health Aide What is your primary language Hebrew Tobacco Use: Never used ETOH Use: denies use Illicit Drug Use: denies illicit drug use Family History Hx Contributory? No (Dion Miller) Review of Systems Review of Systems Constitutional: Reports: no symptoms. Eyes: Reports: no symptoms. Ears, Nose, Throat, Mouth: Reports: no symptoms. Respiratory: Reports: no symptoms. Cardiovascular: Reports: no symptoms. Gastrointestinal/Abdominal: Reports: no symptoms. Genitourinary: Reports: no symptoms. Musculoskeletal: Reports: no symptoms. Skin: Reports: no symptoms. Neurological/Psychological: Reports: see HPI, headache. All Other Systems: Reviewed and Negative (Dion Miller) Physical Exam Physical Exam General Appearance: well developed/nourished, no apparent distress, alert, awake Head: atraumatic, normal appearance Eyes: Bilateral: normal appearance, PERRL, EOMI. Ears, Nose, Throat, Mouth: hearing grossly normal Neck: normal inspection, supple, full range of motion, no midline tenderness Respiratory: normal breath sounds, chest non-tender, no respiratory distress, lungs clear Cardiovascular: regular rate/rhythm, normal peripheral pulses Peripheral Pulses: 2+ radial (R), 2+ radial (L) Gastrointestinal: soft, non-tender Back: normal inspection, normal range of motion Extremities: normal range of motion Neurologic/Psych: no motor/sensory deficits, awake, alert, oriented x 3, normal gait Skin: intact, normal color, warm/dry Core Measures ACS in differential dx? No CVA/TIA Diagnosis No Sepsis Present: No Sepsis Focused Exam Completed? No (Wilfrde DEL REAL,Dion) Progress Differential Diagnosis: ext injury, ICH, pelvis injury, CONCUSSION, CONTUSION Plan of Care: Orders Procedure Date/time Status CT HEAD WO IV CONTRAST 04/[address] CERV SPINE WO IV CONTRAST 04/08 1647 Active Patient seen and evaluated. He is here for mechanical fall. This occurred twice. He is blind and tripped on the floor. He did strike his head. He has no complaints. He is feeling well has no concerns no symptoms. CT scans of the head and neck were obtained do not show any acute findings. Patient was instructed to continue Tylenol as needed for pain. Apply ice. Avoid excessive physical activity. Wear supportive shoes or socks when walking on hardwood floors. Follow-up with primary care doctor within next week for recheck discussed return precautions patient agrees. Diagnostic Imaging: Viewed by Me: CT Scan. Discussed w/RAD: CT Scan. Radiology Impression: PATIENT: BASHIR ALMAGUER PRESENT AGE: 52 PATIENT ACCOUNT NO: [id number] : 64 LOCATION: [facility] ORDERING PHYSICIAN: Dion DEL REAL SERVICE DATE: 04/08/18 EXAM TYPE: CAT - CT CERV SPINE WO IV CONTRAST; CT HEAD WO IV CONTRAST EXAMINATION: CT HEAD WITHOUT CONTRAST CT CERVICAL SPINE WITHOUT CONTRAST CLINICAL INFORMATION: Patient fell out of bed, head trauma . Patient with history of oral squamous cell carcinoma, status post chemotherapy. COMPARISON: PET CT scan dated 09/08/2016 TECHNIQUE: Contiguous axial imaging was performed from the skull base to vertex without intravenous administration of contrast. Contiguous axial imaging was performed from the cervical spine and source images were reviewed along with axial reconstructions and sagittal and coronal MPRs. DLP: 1037.94 mGy-cm CT HEAD: Bilateral frontal encephalomalacia with adjacent ex vacuo dilatation of the frontal horn of bilateral ventricles is fairly similar to 2016 CT images from PET CT scan and consequence of an old insult. There has been prior anterior craniotomy. There is no evidence of acute intracranial hemorrhage or acute territorial infarction. No acute skull fracture. Fluid density within the left mastoid air cells without evidence of bony erosion can represent mastoid effusion. The right mastoid air cells are well pneumatized. The small amount of secretion within the right sphenoid sinus. The orbits are intact. CT CERVICAL SPINE: The vertebral body height and alignment of cervical spine are within normal limits. Mild straightening of the normal lordotic curvature of the cervical spine also noted, which can be positional or due to muscle spasm. There is narrowing of the C5-C6 intervertebral disc space with sclerotic changes of the adjacent endplates and small anterior and posterior marginal osteophytes. The intervertebral disc spaces are otherwise preserved. The posterior elements are intact. There is no acute fracture or dislocation of cervical spine. The paraspinal soft tissues are unremarkable. The visualized lung apices demonstrate a 2.6 cm area of right apical opacity, a new finding since 01/27/2017 CT scan of neck. Less prominent left anterior apical opacity also seen. There is a 0.6 cm broad-based nodular density along the posterior, dependent part of the trachea at the thoracic apex, better seen on axial image 313/354 from series 9 and sagittal image 31/120. This is a new finding since 01/27/2017 CT scan of neck. IMPRESSION: No acute intracranial hemorrhage or acute skull fracture. No acute fracture or dislocation of cervical spine. Left mastoid effusion. New right apical pulmonary opacity. Further chest CT scan evaluation as clinically indicated. A 0.7 cm broad-based nodular density along the posterior/dependent wall of the trachea at the thoracic inlet. Further clinical and if indicated direct visual evaluation is suggested. DICTATED BY: Lilia Foreman MD DATE/TIME DICTATED:04/08/182032 GEOSPATIAL INTELLIGENCE ANALYST:CEE DATE/TIME TRANSCRIBED:2032 CONFIDENTIAL, DO NOT COPY WITHOUT APPROPRIATE AUTHORIZATION. < Electronically signed in Other Vendor System> SIGNED BY: Lilia Foreman MD 04/08/182055 (Dion Miller) Departure Departure Disposition: HOME OR SELF CARE Condition: Stable Clinical Impression Primary Impression: Minor head injury Qualifiers: Encounter type: initial encounter Qualified Code: S09.90XA - Unspecified injury of head, initial encounter Referrals: Mahogany Mata MD (PCP/Family) Additional Instructions: Follow-up with primary care doctor to review all results of today's visit. Tylenol for pain. Monitor symptoms closely return with any concerns. Departure Forms: Customer Survey General Discharge Information (Dion Miller) PA/FISH HATCHERY INSPECTOR Co-Sign Statement Statement: ED Attending supervision documentation- [] I saw and evaluated the patient. I have also reviewed all the pertinent lab results and diagnostic results. I agree with the findings and the plan of care as documented in the PA's/FISH HATCHERY INSPECTOR's documentation. [x] I have reviewed the ED Record and agree with the PA's/FISH HATCHERY INSPECTOR's documentation. [] Additions or exceptions (if any) to the PAs/FISH HATCHERY INSPECTOR's note and plan are summarized below: [] (Checo MELGAR,Deniz Hernandez)
--- NOTE | 2018-04-08 20:56 | CT SCAN REPORT ---
EXAMINATION: CT HEAD WITHOUT CONTRAST CT CERVICAL SPINE WITHOUT CONTRAST CLINICAL INFORMATION: Patient fell out of bed, head trauma . Patient with history of oral squamous cell carcinoma, status post chemotherapy. COMPARISON: PET CT scan dated 09/08/2016 TECHNIQUE: Contiguous axial imaging was performed from the skull base to vertex without intravenous administration of contrast. Contiguous axial imaging was performed from the cervical spine and source images were reviewed along with axial reconstructions and sagittal and coronal MPRs. DLP: 1037.94 mGy-cm CT HEAD: Bilateral frontal encephalomalacia with adjacent ex vacuo dilatation of the frontal horn of bilateral ventricles is fairly similar to 2016 CT images from PET CT scan and consequence of an old insult. There has been prior anterior craniotomy. There is no evidence of acute intracranial hemorrhage or acute territorial infarction. No acute skull fracture. Fluid density within the left mastoid air cells without evidence of bony erosion can represent mastoid effusion. The right mastoid air cells are well pneumatized. The small amount of secretion within the right sphenoid sinus. The orbits are intact. CT CERVICAL SPINE: The vertebral body height and alignment of cervical spine are within normal limits. Mild straightening of the normal lordotic curvature of the cervical spine also noted, which can be positional or due to muscle spasm. There is narrowing of the C5-C6 intervertebral disc space with sclerotic changes of the adjacent endplates and small anterior and posterior marginal osteophytes. The intervertebral disc spaces are otherwise preserved. The posterior elements are intact. There is no acute fracture or dislocation of cervical spine. The paraspinal soft tissues are unremarkable. The visualized lung apices demonstrate a 2.6 cm area of right apical opacity, a new finding since 01/27/2017 CT scan of neck. Less prominent left anterior apical opacity also seen. There is a 0.6 cm broad-based nodular density along the posterior, dependent part of the trachea at the thoracic apex, better seen on axial image 313/354 from series 9 and sagittal image 31/120. This is a new finding since 01/27/2017 CT scan of neck. IMPRESSION: No acute intracranial hemorrhage or acute skull fracture. No acute fracture or dislocation of cervical spine. Left mastoid effusion. New right apical pulmonary opacity. Further chest CT scan evaluation as clinically indicated. A 0.7 cm broad-based nodular density along the posterior/dependent wall of the trachea at the thoracic inlet. Further clinical and if indicated direct visual evaluation is suggested.
[2018-04-08 21:31] VITALS: BP 116/74
== END 2018-04-08 21:34 ==
LOC: ERH 16:19
DX: S09.90XA Unspecified injury of head, initial encounter (principal); W01.0XXA Fall on same level from slipping, tripping and stumbling without subsequent striking against object, initial encounter; Y93.01 Activity, walking, marching and hiking; Y92.9 Unspecified place or not applicable

== ENCOUNTER 2018-04-11 18:20 | Inpatient (IN) | payer OTHER, MEDICARE ==
[~2018-04-11] VITALS: Ht 182.9 cm; Wt 76.7 kg
--- NOTE | 2018-04-11 18:50 | ED MVC/FALL/TRAUMA COMPLAINT ---
History of Present Illness General Chief Complaint: Fall Stated Complaint: BIBA WITH A FALL Source: patient Exam Limitations: no limitations Vital Signs & Intake/Output Vital Signs & Intake/Output Vital Signs Date Time Temp Pulse Resp B/P B/P Pulse O2 O2 Flow FiO2 Mean Ox Delivery Rate 04/11 2257 98.7 96 18 113/75 99 Room Air 04/11 2118 92 16 107/65 96 Room Air 04/11 2013 97.2 95 18 112/76 98 04/11 1909 Room Air 04/11 1829 98.4 101 16 113/81 97 Room Air ED Intake and Output 04/12 0000 04/11 1200 Intake Total Output Total 200 Balance -200 Output, Urine 200 Patient 170 lb Weight Weight Reported by Patient Measurement Method Allergies Coded Allergies: No Known Allergies (05/22/17) Reconcile Medications Acetaminophen (Tylenol Extra Strength) 500 MG TABLET 2 TAB PO Q6 PRN PAIN ( Reported) Albuterol Sulfate (Proair Respiclick) 90 MCG AER.POW.BA 1-2 PUFF PO Q4-6 PRN PRN SHORTNESS OF BREATH (Reported) Budesonide 0.25 MG/2 ML AMPUL.NEB 1 Vial INH/SUNSHINE BID BREATHING PROBLEMS ( Reported) Guaifenesin (Mucinex) 600 MG TAB.ER.12H 1 TAB PO BID PRN CONGESTION (Reported ) Lorazepam (Ativan) 0.5 MG TABLET 1 TAB PO BIDP PRN NAUSEA/VOMITING (Reported) Olanzapine (Zyprexa) 15 MG TABLET 1 TAB PEG QPM MENTAL HEALTH Oxycodone HCl 5 MG TABLET 1-2 TAB PO Q4-6 PRN PRN PAIN (Reported) Phenytoin (Dilantin) 100 MG CAPSULE 4 CAP PO DAILY SEIZURES (Reported) Phenytoin (Dilantin) 100 MG CAPSULE 3 CAP PO QPM SEIZURES (Reported) Prochlorperazine Maleate 10 MG TABLET 1 TAB PO Q6 PRN NAUSEA/VOMITING ( Reported) Trazodone HCl 50 MG TABLET 1 TAB PEG QPM SLEEP Triage Note: BIBA FOR UNWITNESSED FALL AT [facility]. PT WITH HX OF TBI, SEIZURE DISORDER. PT STATES HE SLIPPED AND FELL. NOW COMPLAINIG OF RIGHT UPPER LEG/HIP PAIN. NO PAIN IN RIGHT HIP WITH PALPATION, BUT PT UNABLE TO BEND RIGHT KNEE DUE TO PAIN. +DORSALIS PEDIS PULSE BILATERALLY. PT AWAKE, ALERT, CONVERSING APPROPRIATELY. Triage Nurses Notes Reviewed? yes Onset: Abrupt Duration: hour(s): Timing: single episode today Severity: moderate Severity Numbers: 7 Injuries/Fall Location: right hip Method of Injury: fall Loss of Consciousness: no loss of consciousness HPI: 53yo male with hx of TBI, seizures [facility] from [facility] prior to arrival. Patient slipped and fell onto his right side. Patient complaining of right hip pain currently, 7/10, worse with movement. Patient was unable to walk or stand after the fall, he had to be assisted by staff at [facility]. There was no head strike or loss of conciousness. This is the patient's 3rd fall recently. The patient denies numbness, tingling, headache, abdominal pain, chest pain, dyspnea, dizziness. (Marcia Bernal) Past History Travel History Traveled to [place] past 21 day No Medical History Any Pertinent Medical History? 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 No (Marcia Bernal) Review of Systems Review of Systems Constitutional: Reports: no symptoms. Eyes: Reports: no symptoms. Ears, Nose, Throat, Mouth: Reports: no symptoms. Respiratory: Reports: no symptoms. Cardiovascular: Reports: no symptoms. Gastrointestinal/Abdominal: Reports: no symptoms. Genitourinary: Reports: no symptoms. Musculoskeletal: Reports: see HPI. Skin: Reports: no symptoms. Neurological/Psychological: Reports: no symptoms. All Other Systems: Reviewed and Negative (Marcai Bernal) Physical Exam Physical Exam General Appearance: well developed/nourished, no apparent distress, alert, awake Head: atraumatic, normal appearance Eyes: Bilateral: normal appearance. Ears, Nose, Throat, Mouth: hearing grossly normal Neck: normal inspection, supple, full range of motion, no midline tenderness Respiratory: normal breath sounds, no respiratory distress, lungs clear Cardiovascular: regular rate/rhythm Gastrointestinal: normal bowel sounds, soft, non-tender, no organomegaly Back: normal inspection, normal range of motion, no vertebral tenderness Extremities: active ROM at right hip limited d/t pain, tenderness to latearl right hip without deformity Neurologic/Psych: awake, alert, oriented x 3 Skin: intact, normal color, warm/dry Core Measures ACS in differential dx? No CVA/TIA Diagnosis No Sepsis Present: No Sepsis Focused Exam Completed? No (Nurys DEL REAL,Marcia Bales) Progress Differential Diagnosis: abd injury, C/T/L spine injury, ext injury, pelvis injury, pnemothorax, spinal cord injury Plan of Care: Orders Procedure Date/time Status CBC WITHOUT DIFFERENTIAL 04/13 600 Active BASIC ELECTROLYTES PLUS BUN&CR 04/13 600 Active Nothing by Mouth 04/12 B Active Weight 04/129 Active Vital Signs 04/12 29 Active Teach/Educate 04/12 29 Active Pain Treatment and Response 04/12 29 Active Nutritional Intake, Monitor 04/12 29 Active Isolation 04/12 29 Active Intake & Output 04/129 Active Patient Care Conference 04/12 29 Active Activity/Ambulation 04/129 Active Saline Lock 04/124 Active Pathway - chart 04/12 0024 Active House Staff 04/12 0024 Active VTE Mechanical Prophylaxis 04/12 UNK Active Vital Signs 04/12 UNK Complete Intake & Output 04/12 UNK Complete Activity/Ambulation 04/12 UNK Complete Patient Data 04/11 2302 Active OXYGEN SETUP (GEN) 04/11 2248 Active Saline Lock 04/11 2248 Active Admit to inpatient 04/11 2248 Active Vital Signs 04/11 2248 Complete Activity/Ambulation 04/11 2248 Active Code Status 04/11 2248 Active Intake & Output 04/11 2217 Active Dejesus, Insertion/Removal/Asses 04/11 2034 Active CULTURE,URINE 04/11 2034 Active URINALYSIS 04/11 2034 Complete PARTIAL THROMBOPLASTIN TIME 04/11 2034 Complete PROTHROMBIN TIME 04/11 2034 Complete COMPREHENSIVE METABOLIC PANEL 04/11 2034 Complete CBC WITHOUT DIFFERENTIAL 04/11 2034 Complete EKG 04/11 2034 Active Current Medications Sig/Marion Start time Last Medication Dose Stop Time Status Admin Phenytoin 400 MG DAILY 04/12 0900 AC (Dilantin) Sodium Chloride 100 ML (Normal Saline 0.9%) Heparin Sodium 5,000 UNIT Q8 04/12 0600 AC (Porcine) Morphine Sulfate 2 MG Q6-PRN PRN 04/12 004 AC (MORPHINE SULFATE) Phenytoin 300 MG QPM 04/12 004 AC (Dilantin) Sodium Chloride 100 ML (Normal Saline 0.9%) Acetaminophen 1,000 MG TID PRN 04/12 003 AC 04/12 (Ofirmev) 0044 Albuterol Sulfate 2 PUF Q4 PRN 04/12 003 AC (Ventolin) Lorazepam 0.5 MG BID PRN 04/12 30 AC (Ativan) 04/19 0029 Sodium Chloride 1,000 ML .Q20H 04/12 003 AC (Normal Saline 0.9%) 04/12 2029 Laboratory Tests 04/11/182158: Urinalysis MOD H, Urine Color YEL, Urine Clarity HAZY H, Urine pH 7.0, Ur Specific [place] 1.020, Urine Protein TRACE H, Urine Ketones NEG, Urine Nitrite NEG, Urine Bilirubin NEG, Urine Urobilinogen 0.2, Ur Leukocyte Esterase SMALL H , Ur Microscopic SEDIMENT EXAMINED, Urine RBC FEW H, Urine WBC 15-25 H, Ur Epithelial Cells FEW, Urine Bacteria RARE H, Hyaline Casts RARE H, Urine Mucus MOD H, Urine Hemoglobin TRACE-INTACT H, Urine Glucose NEG 04/11/182054: Anion Gap 12, Estimated GFR > 60, BUN/Creatinine Ratio 33.8 H, Glucose 152 H, Calcium 9.4, Total Bilirubin 0.2, AST 16 L, ALT 32, Alkaline Phosphatase 98, Total Protein 6.9, Albumin 4.0, Globulin 2.9, Albumin/Globulin Ratio 1.4, PT 11.9, INR 1.09, APTT 32, CBC w Diff NO MAN DIFF REQ, RBC 3.95 L, MCV 95.3 H, MCH 31.9 H, MCHC 33.5, RDW 14.2, MPV 9.0, Gran % 91.2 H, Lymphocytes % 4.3 L, Monocytes % 4.2, Eosinophils % 0.3, Basophils % 0, Absolute Granulocytes 11.7 H , Absolute Lymphocytes 0.6 L, Absolute Monocytes 0.5, Absolute Eosinophils 0, Absolute Basophils 0 Microbiology 04/11 2159 URINE ROUT: Urine Culture - RECD X-ray shows right hip fracture. Spoke with Dr. Robbins regarding this patient - he recommends CT scan and general medicine admission for surgical clearance. NPO after midnight. Spoke with case management who recommend full admission. Patient will likely require physical therapy consult in rehabilitation placement following surgery. Spoke with Dr. Arguelles regarding patient's general medicine admission. Diagnostic Imaging: Viewed by Me: Radiology Read. Discussed w/RAD: Radiology Read. Radiology Impression: PATIENT: BASHIR ALMAGUER PRESENT AGE: 53 PATIENT ACCOUNT NO: [id number] : 64 LOCATION: [facility] ORDERING PHYSICIAN: Marcia DEL REAL SERVICE DATE: 04/11/18 EXAM TYPE: RAD - XRY-AP PELVIS; XRY-HIP 2-3 VIEWS, RIGHT EXAMINATIONS: PELVIS 1 VIEW AND RIGHT HIP 2 VIEWS CLINICAL INFORMATION: Pain after fall. COMPARISON: None. TECHNIQUE: A supine view of the pelvis is provided. AP neutral and frog-leg lateral views of the right hip are provided. FINDINGS: There is an intertrochanteric right hip fracture with varus angulation. Both femoral heads are seated within well-formed acetabula. IMPRESSION: Right intertrochanteric hip fracture. DICTATED BY: Shai Das MD DATE/TIME DICTATED:04/11/182004 FORMING YARDAGE CONTROL OPERATOR:CEE DATE/ TIME TRANSCRIBED:04/11/182004 CONFIDENTIAL, DO NOT COPY WITHOUT APPROPRIATE AUTHORIZATION. <Electronically signed in Other Vendor System> SIGNED BY: Shai Das MD 04/11/182008, PATIENT: BASHIR ALMAGUER PRESENT AGE: 53 PATIENT ACCOUNT NO: [id number] : 64 LOCATION: [facility] ORDERING PHYSICIAN: Marcia DEL REAL SERVICE DATE: 04/11/18 EXAM TYPE: RAD - XRY-KNEE COMPLETE RIGHT EXAMINATION: RIGHT KNEE 3 VIEWS CLINICAL INFORMATION: Pain after fall. COMPARISON: None. TECHNIQUE: AP, lateral, oblique views of the right knee were obtained. FINDINGS: There are no fractures or dislocations. There is no knee joint effusion. There is no significant soft tissue swelling. IMPRESSION: Unremarkable right knee radiographs. DICTATED BY: Shai Das MD DATE/TIME DICTATED:04/11/182005 FORMING YARDAGE CONTROL OPERATOR:CEE DATE/TIME TRANSCRIBED:04/11/182005 CONFIDENTIAL, DO NOT COPY WITHOUT APPROPRIATE AUTHORIZATION. <Electronically signed in Other Vendor System> SIGNED BY: Shai Das MD 04/11/182010 (Marcia Bernal) Departure Departure Disposition: STILL A PATIENT Condition: Stable Clinical Impression Primary Impression: Intertrochanteric fracture of right hip Qualifiers: Encounter type: initial encounter Fracture type: closed Fracture alignment: nondisplaced Qualified Code: S72.144A - Nondisplaced intertrochanteric fracture of right femur, initial encounter for closed fracture Secondary Impressions: Fall Qualifiers: Encounter type: initial encounter Qualified Code: W19.XXXA - Unspecified fall, initial encounter Referrals: Mahogany Mata MD (PCP/Family) Departure Forms: Customer Survey General Discharge Information Admission Note Spoke With: Alberto Arvizu MD Documentation of Exam: Documentation of any treatments & extenuating circumstances including Concerns Regarding Discharge (functional status, medication knowledge or non-compliance, living conditions, etc.) that warrant an admission rather than observation: [ Acute right hip fracture requiring IV pain control, orthopedic consult and hip surgery, PT evaluation and rehab following surgery] (Marcia Bernal) PA/NAUMKEAG OPERATOR Co-Sign Statement Statement: ED Attending supervision documentation- x I saw and evaluated the patient. I have also reviewed all the pertinent lab results and diagnostic results. I agree with the findings and the plan of care as documented in the PA's/NAUMKEAG OPERATOR's documentation. Fall, hip fx from [facility] with schizophrenia [] I have reviewed the ED Record and agree with the PA's/NAUMKEAG OPERATOR's documentation. [] Additions or exceptions (if any) to the PAs/NAUMKEAG OPERATOR's note and plan are summarized below: [] (Katelyn MELGAR,[place])
--- NOTE | 2018-04-11 20:09 | RADIOLOGY REPORT ---
EXAMINATIONS: PELVIS 1 VIEW AND RIGHT HIP 2 VIEWS CLINICAL INFORMATION: Pain after fall. COMPARISON: None. TECHNIQUE: A supine view of the pelvis is provided. AP neutral and frog-leg lateral views of the right hip are provided. FINDINGS: There is an intertrochanteric right hip fracture with varus angulation. Both femoral heads are seated within well-formed acetabula. IMPRESSION: Right intertrochanteric hip fracture.
--- NOTE | 2018-04-11 20:11 | RADIOLOGY REPORT ---
EXAMINATION: RIGHT KNEE 3 VIEWS CLINICAL INFORMATION: Pain after fall. COMPARISON: None. TECHNIQUE: AP, lateral, oblique views of the right knee were obtained. FINDINGS: There are no fractures or dislocations. There is no knee joint effusion. There is no significant soft tissue swelling. IMPRESSION: Unremarkable right knee radiographs.
[2018-04-11 21:13] LABS: ABSOLUTE BASOPHIL COUNT 0 /CUMM (0.0-0.2); ABSOLUTE EOSINOPHIL COUNT 0 /CUMM (0.0-0.7); ABSOLUTE GRANULOCYTE CT 11.7 /CUMM (1.4-6.5); ABSOLUTE LYMPH COUNT 0.6 /CUMM (1.2-3.4); ABSOLUTE MONOCYTE COUNT 0.5 /CUMM (0.10-0.60); BASOPHIL % 0 % (0.0-2.0); EOSINOPHIL % 0.3 % (0-5); HEMATOCRIT 37.6 % (42-52); MEAN CORPUSCULAR HGB 31.9 PG (27.0-31.0); MEAN CORPUSCULAR HGB CONC 33.5 G/DL (33.0-37.0); MEAN CORPUSCULAR VOLUME 95.3 FL (80.0-94.0); PLATELET COUNT 248 /CUMM (130-400); RBC DISTRIBUTION WIDTH 14.2 % (11.5-14.5); RED BLOOD CELL CT 3.95 /CUMM (4.70-6.10); WHITE BLOOD CELL COUNT 12.8 /CUMM (4.8-10.8)
[2018-04-11 21:23] LABS: PT 11.9 SEC (9.4-12.5); PTT 32 SEC (25-37)
[2018-04-11 21:28] LABS: GRANULOCYTE % 91.2 % (42.2-75.2)
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
--- NOTE | 2018-04-11 23:12 | CT SCAN REPORT ---
EXAMINATION: CT LOWER EXTREMITY WITHOUT CONTRAST, RIGHT CLINICAL INFORMATION: Assessed right hip fracture. COMPARISON: Radiographs 04/11/2018. TECHNIQUE: Multidetector volumetric imaging of the right lower extremity targeting the right hip was performed without IV contrast. Coronal and sagittal reformatted images were obtained and reviewed. DLP: 829 mGy-cm FINDINGS: There is redemonstration of the subcapital right femoral neck fracture. There is mild impaction at the fracture site with varus and dorsal angulation. Anterior cortical gap measures 1.9 cm. There is approximately 115 degrees of dorsal angulation of the distal fragment. A small comminuted fragment is seen at the inferior margin of the fracture extending to the base of the femoral head. This can be seen on series 200 image 91. The femoral head remains well seated within its acetabulum. Mild degenerative changes are present with joint space narrowing and small osteophytes. There is ossification in the soft tissues adjacent to the medial aspect of the proximal femoral diaphysis, possibly associated with chronic trauma. The remaining visualized portion of the right femur is unremarkable. The visualized right hemipelvis is intact. There is a Dejesus catheter in the decompressed bladder. The visualized bowel is trace no acute abnormality. There is no lymphadenopathy. Mild soft tissue stranding is seen lateral to the right hip. IMPRESSION: Subcapital right femoral neck fracture with mild impaction and angulation.
--- NOTE | 2018-04-12 00:25 | Admission Certification ---
Admission Certification Certification Statement - As attending physician, I certify that at the time of - admission, based on clinical presentation, severity of - symptoms, need for further diagnostic testing and - therapeutic interventions, and risk of adverse outcomes - without in-hospital treatment, in my clinical assessment, - this patient requires an acute hospital stay for a minimum - of two nights or longer. I have also considered psychsocial - factors such as support system, advanced age, financial - issues, cognitive issues, and failed out-patient treatments, - past re-admission history, safety of patient, and lack of - compliance as applicable. Specific rationale supporting this admission is: Mechanical fall, right subcapital femoral neck fracture.
[2018-04-12 01:07] VITALS: BP 122/70
[2018-04-12 06:51] VITALS: BP 118/62
--- NOTE | 2018-04-12 07:21 | PN- Housestaff ---
Aniya Albert 04/12/18 0720: Subjective Follow-up For: R intertrochanteric fracture Subjective: Patient reports R leg pain 8/10 in severity. He denies SOB, CP, nausea, vomiting , urinary or bowel symptoms. His last bowel movement was 1 day ago Review of Systems Constitutional: Reports: see HPI. Objective Last 24 Hrs of Vital Signs/I&O Vital Signs Date Time Temp Pulse Resp B/P B/P Pulse O2 O2 Flow FiO2 Mean Ox Delivery Rate 04/12 651 98.2 78 18 118/62 97 Room Air 04/12 0107 98.0 88 18 122/70 97 04/11 2257 98.7 96 18 113/75 99 Room Air 04/11 2118 92 16 107/65 96 Room Air 04/11 2013 97.2 95 18 112/76 98 04/11 1909 Room Air 04/11 1829 98.4 101 16 113/81 97 Room Air Intake & Output 04/12 1600 04/12 0800 04/12 0000 Intake Total Output Total 275 200 Balance -275 -200 Output, Urine 275 200 Patient 170 lb 170 lb Weight Weight Reported by Patient Reported by Patient Measurement Method Physical Exam General Appearance: Alert, Oriented X3, Cooperative, No Acute Distress HEENT: BL blindness Cardiovascular: Regular Rate, Normal S1, Normal S2 Lungs: Clear to Auscultation, Normal Air Movement Abdomen: Normal Bowel Sounds, Soft, No Tenderness Extremities: RLE limited ROM without visible ecchymosis. Normal LLE ROM Current Medications: Current Medications Sig/Marion Start time Last Medication Dose Route Stop Time Status Admin Acetaminophen 0 .STK-MED ONE 04/12 0050 DC IV Acetaminophen 1,000 MG TID PRN 04/12 0030 AC 04/12 IV 0359 Albuterol Sulfate 2 PUF Q4 PRN 04/12 003 AC INH Heparin Sodium 5,000 UNIT Q8 04/12 0600 CAN (Porcine) SC Lorazepam 0.5 MG BID PRN 04/12 0030 AC PO 04/19 0029 Morphine Sulfate 2 MG Q6-PRN PRN 04/12 0045 AC 04/12 IV 0643 Morphine Sulfate 2 MG Q6-PRN PRN 04/12 003 DC IV Morphine Sulfate 0 .STK-MED ONE 04/115 DC .ROUTE Morphine Sulfate 2 MG ONCE ONE 04/11 2245 DC 04/11 IV 04/11 Morphine Sulfate 0 .STK-MED ONE 04/11 2055 DC .ROUTE Morphine Sulfate 2 MG ONCE ONE 04/11 2045 DC 04/11 IV 04/11 Phenytoin 400 MG DAILY 04/12 0900 AC 04/12 Sodium Chloride 100 ML IV 0807 Phenytoin 300 MG QPM 04/12 0045 AC 04/12 Sodium Chloride 100 ML IV 0251 Sodium Chloride 1,000 ML .Q20H 04/12 003 AC 04/12 IV 04/12 2029 0120 Last 24 Hrs of Lab/Ector Results Last 24 Hrs of Labs/Mics: Laboratory Tests 04/11/182158: Urinalysis MOD H, Urine Color YEL, Urine Clarity HAZY H, Urine pH 7.0, Ur Specific [place] 1.020, Urine Protein TRACE H, Urine Ketones NEG, Urine Nitrite NEG, Urine Bilirubin NEG, Urine Urobilinogen 0.2, Ur Leukocyte Esterase SMALL H , Ur Microscopic SEDIMENT EXAMINED, Urine RBC FEW H, Urine WBC 15-25 H, Ur Epithelial Cells FEW, Urine Bacteria RARE H, Hyaline Casts RARE H, Urine Mucus MOD H, Urine Hemoglobin TRACE-INTACT H, Urine Glucose NEG 04/11/182054: Anion Gap 12, Estimated GFR > 60, BUN/Creatinine Ratio 33.8 H, Glucose 152 H, Calcium 9.4, Total Bilirubin 0.2, AST 16 L, ALT 32, Alkaline Phosphatase 98, Troponin I < 0.01, Total Protein 6.9, Albumin 4.0, Globulin 2.9, Albumin/ Globulin Ratio 1.4, PT 11.9, INR 1.09, APTT 32, CBC w Diff NO MAN DIFF REQ, RBC 3.95 L, MCV 95.3 H, MCH 31.9 H, MCHC 33.5, RDW 14.2, MPV 9.0, Gran % 91.2 H, Lymphocytes % 4.3 L, Monocytes % 4.2, Eosinophils % 0.3, Basophils % 0, Absolute Granulocytes 11.7 H, Absolute Lymphocytes 0.6 L, Absolute Monocytes 0.5, Absolute Eosinophils 0, Absolute Basophils 0 Microbiology 04/11 2159 URINE ROUT: Urine Culture - RECD Assessment/Plan Assessment: Mr. 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 Patient stated that he slipped and fell on his right hip Problem list: #R intertrochanteric fracture Plan: Surgery this afternoon by Dr. Robbins Continue IV Phenytoin Pain: morphine, Tylenol Appreciate Ortho recommendations DVT prophylaxis-subcutaneous heparin GI prophylaxis-Protonix IV when necessary nothing by mouth for surg diet-Jevity 1.2 full code Patient's brother Agustin is a conservator Problem List: 1. Intertrochanteric fracture of right hip Pain Ratin Pain Location: R hip Pain Goal: Pain 7 or less Pain Plan: Morphine Tomorrow's Labs & Rationales: CBC, BEP Mikal MELGAR,Laura 04/12/18 1049: Attending MD Review Statement Attending Statement Attending MD Statement: examined this patient, discuss w/resident/PA/BANK GUARD, agreed w/resident/PA/BANK GUARD, reviewed EMR data (avail), discussed with nursing, discussed with case mgmt, reviewed images, amended to note Attending Assessment/Plan: Patient seen and examined, he does complain of pain in his right hip. Patient with past medical history significant for traumatic brain injury, esophageal cancer status post chemoradiation admitted with a fall and found to have Subcapital right femoral neck fracture with mild impaction and angulation. Patient is scheduled for operating room this afternoon. Vital Signs Date Time Temp Pulse Resp B/P B/P Pulse O2 O2 Flow FiO2 Mean Ox Delivery Rate 04/12 0651 98.2 78 18 118/62 97 Room Air 04/12 0107 98.0 88 18 122/70 97 04/11 2257 98.7 96 18 113/75 99 Room Air 04/118 92 16 107/65 96 Room Air 04/11 2013 97.2 95 18 112/76 98 04/11 1909 Room Air 04/11 182 98.4 101 16 113/81 97 Room Air on exam; awake, nad. cv; s1, s2, rrr resp; clear abd: soft, nt, bs+ ext; no edema Laboratory Tests 04/11 Chemistry Sodium (137 - 145 mmol/L) 141 Potassium (3.5 - 5.1 mmol/L) 4.5 Chloride (98 - 107 mmol/L) 101 Carbon Dioxide (22 - 30 mmol/L) 28 Anion Gap (5 - 16) 12 BUN (9 - 20 mg/dL) 27 H Creatinine (0.7 - 1.2 mg/dL) 0.8 Estimated GFR (>60 ml/min) > 60 BUN/Creatinine Ratio (7 - 25 %) 33.8 H Glucose (65 - 99 mg/dL) 152 H Calcium (8.4 - 10.2 mg/dL) 9.4 Total Bilirubin (0.2 - 1.3 mg/dL) 0.2 AST (17 - 59 U/L) 16 L ALT (21 - 72 U/L) 32 Alkaline Phosphatase (< 127 U/L) 98 Troponin I (<0.11 ng/ml) < 0.01 Total Protein (6.3 - 8.2 g/dL) 6.9 Albumin (3.5 - 5.0 g/dL) 4.0 Globulin (1.9 - 4.2 gm/dL) 2.9 Albumin/Globulin Ratio (1.1 - 2.2 %) 1.4 Coagulation PT (9.4 - 12.5 SEC) 11.9 INR (0.90 - 1.17) 1.09 APTT (25 - 37 SEC) 32 Hematology CBC w Diff NO MAN DIFF REQ WBC (4.8 - 10.8 /CUMM) 12.8 H RBC (4.70 - 6.10 /CUMM) 3.95 L Hgb (14.0 - 18.0 G/DL) 12.6 L Hct (42 - 52 %) 37.6 L MCV (80.0 - 94.0 FL) 95.3 H MCH (27.0 - 31.0 PG) 31.9 H MCHC (33.0 - 37.0 G/DL) 33.5 RDW (11.5 - 14.5 %) 14.2 Plt Count (130 - 400 /CUMM) 248 MPV (7.4 - 10.4 FL) 9.0 Gran % (42.2 - 75.2 %) 91.2 H Lymphocytes % (20.5 - 51.1 %) 4.3 L Monocytes % (1.7 - 9.3 %) 4.2 Eosinophils % (0 - 5 %) 0.3 Basophils % (0.0 - 2.0 %) 0 Absolute Granulocytes (1.4 - 6.5 /CUMM) 11.7 H Absolute Lymphocytes (1.2 - 3.4 /CUMM) 0.6 L Absolute Monocytes (0.10 - 0.60 /CUMM) 0.5 Absolute Eosinophils (0.0 - 0.7 /CUMM) 0 Absolute Basophils (0.0 - 0.2 /CUMM) 0 Urines Urinalysis MOD H Urine Color (YEL,AMB,STR) YEL Urine Clarity (CLEAR) HAZY H Urine pH (5.0 - 8.0) 7.0 Ur Specific [place] (1.001 - 1.035) 1.020 Urine Protein (NEG,<30 MG/DL) TRACE H Urine Ketones (NEG) NEG Urine Nitrite (NEG) NEG Urine Bilirubin (NEG) NEG Urine Urobilinogen (0.1 - 1.0 EU/dl) 0.2 Ur Leukocyte Esterase (NEG) SMALL H Ur Microscopic SEDIMENT EXAMINED Urine RBC (0 - 5 /HPF) FEW H Urine WBC (0 - 2 /HPF) 15-25 H Ur Epithelial Cells (NONE,FEW) FEW Urine Bacteria (NEG/NONE) RARE H Hyaline Casts (0/LPF) RARE H Urine Mucus (FEW,NONE) MOD H Urine Hemoglobin (NEG) TRACE-INTACT H Urine Glucose (N MG/DL) NEG A/P: 53 y/o M with pmh sig for 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 Patient is scheduled for operating room this afternoon. Patient's risk stratification was done on admission note. RCRI risk stratification puts him at low risk. Patient currently getting IV Dilantin. Continue IV fluids. Patient nothing by mouth and scheduled for surgery this afternoon. Continue morphine for pain management. Patient will need physical therapy postoperatively. Will likely need to go to rehabilitation afterwards. Will defer anti-coagulation post surgery to orthopedic.
--- NOTE | 2018-04-12 11:26 | RADIOLOGY REPORT ---
EXAMINATION: XR PORTABLE CHEST CLINICAL INFORMATION: Leukocytosis. Assess for pneumonia. COMPARISON: Chest x-ray 05/25/2017. TECHNIQUE: Portable 85 degrees semiupright view of the chest was obtained. FINDINGS: The lung barclay are well expanded and appear clear bilaterally. The cardiac silhouette is normal. The aortic arch is unfolded. There are no pleural effusions or pneumothorax. The central pulmonary vasculature is normal. The hilar regions appear normal. There are no acute osseous findings. The Port-A-Cath from the right chest has been removed since the prior study. IMPRESSION: 1. There are no acute cardiopulmonary findings.
[2018-04-12 14:46] VITALS: BP 130/70
--- NOTE | 2018-04-12 15:01 | Cons- Orthopedic ---
General Information and HPI Consulting Request Date of Consult: 04/12/18 Requested By: Laura Ren MD Reason for Consult: Hip Fracture Source of Information: old records Exam Limitations: unable to give history History of Present Illness: Mr. 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 He was minimally participating in conversation today and therefore a thorough history was not obtainable. I have reviewed his chart in order to obtain the following information. His past medical history also includes esophageal cancer status post chemotherapy and radiation (last radiation on 12/15/2016), lung nodules, schizophrenia, seizure disorders, He was brought in by ambulance from his long term after an unwitnessed fall prior to arrival. He slipped and fell on his right hip, with no loss of consciousness/head injuries, or seizure activity. He has been complaining of right hip pain about 7/10, worsening with movement. This has been patient's 3rd fall recently. It has been reported that the patient denied seizure in last 5yrs. Last seizure was in 1987. He was taking Phenytoin for seizures but was not seeing a neurologist for seizures. only sees Dr. Meza as PCP. denied HTN/schizophrenia/depression/anxiety. Allergies/Medications Allergies: Coded Allergies: No Known Allergies (05/22/17) Home Med List: Acetaminophen (Tylenol Extra Strength) 500 MG TABLET 2 TAB PO Q6 PRN PAIN ( Reported) Albuterol Sulfate (Proair Respiclick) 90 MCG AER.POW.BA 1-2 PUFF PO Q4-6 PRN PRN SHORTNESS OF BREATH (Reported) Budesonide 0.25 MG/2 ML AMPUL.NEB 1 Vial INH/SUNSHINE BID BREATHING PROBLEMS ( Reported) Guaifenesin (Mucinex) 600 MG TAB.ER.12H 1 TAB PO BID PRN CONGESTION (Reported ) Lorazepam (Ativan) 0.5 MG TABLET 1 TAB PO BIDP PRN NAUSEA/VOMITING (Reported) Olanzapine (Zyprexa) 15 MG TABLET 1 TAB PEG QPM MENTAL HEALTH Oxycodone HCl 5 MG TABLET 1-2 TAB PO Q4-6 PRN PRN PAIN (Reported) Phenytoin (Dilantin) 100 MG CAPSULE 4 CAP PO DAILY SEIZURES (Reported) Phenytoin (Dilantin) 100 MG CAPSULE 3 CAP PO QPM SEIZURES (Reported) Prochlorperazine Maleate 10 MG TABLET 1 TAB PO Q6 PRN NAUSEA/VOMITING ( Reported) Trazodone HCl 50 MG TABLET 1 TAB PEG QPM SLEEP Past History Medical History Blood Transfusion Hx: No Neurological: UNSPECIFIED INTRACRANIAL INJURY EENT: blindness Cardiovascular: NONE Respiratory: NONE Gastrointestinal: G TUBE Hepatic: NONE Renal: NONE Musculoskeletal: NONE Psychiatric: schizophrenia Endocrine: NONE Blood Disorders: NONE Cancer(s): THROAT MALIGNANT NEOPLASM OF PHARYNX 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 IADLs Needs Assist: shopping, housework, finances, food prep, telephone, transportation, medication admin. Review of Systems Review of Systems: See H&P Exam & Diagnostic Data Vital Signs and I&O Vital Signs Date Time Temp Pulse Resp B/P B/P Pulse O2 O2 Flow FiO2 Mean Ox Delivery Rate 04/12 1446 98.6 95 19 130/70 96 04/12 0651 98.2 78 18 118/62 97 Room Air 04/12 0107 98.0 88 18 122/70 97 04/11 2257 98.7 96 18 113/75 99 Room Air 04/11 2118 92 16 107/65 96 Room Air 04/11 2013 97.2 95 18 112/76 98 04/11 1909 Room Air 04/11 1829 98.4 101 16 113/81 97 Room Air Intake & Output 04/12 1600 04/12 0800 04/12 0000 04/11 1600 04/11 0800 04/11 0000 Intake Total 400 Output Total 275 200 Balance 400 -275 -200 Intake, IV 400 Output, Urine 275 200 Patient 170 lb 170 lb Weight Weight Reported by Patient Reported by Patient Measurement Method Physical Exam: General: No acute distress, aware of person and situation, knows he has hip fracture Cardiac: RRR, s1s2 Pulm: CTA bilaterally, non-labored respiratory effort Abd: Non-distended, non-tender Extremities: Moves all extremities, distal sensation intact. DP pulses palpable bilaterally. Bilateral calves soft and non-tender. Right leg shortened and externally rotated. Assessment/Plan Assessment/Plan This is a 53 year old male with a PMH significant for TBI, esophageal ca, seizure, schizophrenia, and lung nodules who presents today with an intertrochanteric vs sub cap right hip fracture following an unwitnessed fall. -NPO -Obtain medical clearance, plan for ORIF with omega nail This plan was discussed with Dr. Robbins Consult Acknowledgment - Thank you for your consult request.
[2018-04-12 21:26] VITALS: BP 116/64
[2018-04-12 21:37] VITALS: BP 120/78
--- NOTE | 2018-04-12 22:06 | RADIOLOGY REPORT ---
EXAMINATION: Right hip, C-arm imaging CLINICAL INFORMATION: ORIF right hip fracture. COMPARISON: Plain film exam right hip 04/11/2018 TECHNIQUE: C-arm imaging right hip. Fluoroscopy time 2 minutes 19 seconds. Number of images: 10 FINDINGS: Spot views obtained during placement of compression screw and cannulated screw across the femoral neck into the femoral head transfixing fracture of the right femoral neck. IMPRESSION: Status post ORIF right hip fracture.
--- NOTE | 2018-04-13 05:57 | PN- Orthopedic ---
See Addendum Subjective Subjective: PATIENT LYING IN BED COMFORTABLE WITHOUT COMPLAINS UNEVENTFUL NIGHT Objective Vital Signs and I&Os Vital Signs Date Time Temp Pulse Resp B/P B/P Pulse O2 O2 Flow FiO2 Mean Ox Delivery Rate 04/12 2137 98.6 91 18 120/78 94 04/12 1446 98.6 95 19 130/70 96 04/12 0651 98.2 78 18 118/62 97 Room Air Intake & Output 04/13 0804/13 0000 04/12 1600 04/12 0804/12 0000 04/11 1600 Intake Total 0 400 Output Total 275 200 Balance 0 400 -275 -200 Intake, IV 400 Intake, Oral 0 Output, Urine 275 200 Patient 170 lb 170 lb Weight Weight Reported by Patient Reported by Patient Measurement Method Physical Exam: ALERT AND ORIENTED ANSWERS QUESTIONS BLIND CHEST- CTA SYMMETRIC HEART - RRR ABD - SOFT WITHOUT DISTENTION RIGHT HIP- BULKY DRESSING DRY THIGH WITH MILD EDEMA [place] IN PLACE CALVES SOFT BILATERALLY AND DISTAL PULSES INTACT Assessment/Plan Assessment/Plan POD1 ORIF RIGHT HIP PT TO SEE FOR WB AND AMBULATION DVT PROPH- ALPS ADVANCE DIET AND D/C [place] D/C PLANNING PER CASE MANAGEMENT Core Measures Venous Thromboembolism VTE Risk Factors Age>40 No Mechanical VTE Prophylaxis d/t N/A MechProphylax Ordered No VTE Pharm Prophylaxis d/t Surgical Contraindication
[2018-04-13 06:06] VITALS: BP 131/79
--- NOTE | 2018-04-13 07:01 | Operative Report ---
Operative/Inv Procedure Report Surgery Date: 04/12/18 Name of Procedure: 1) Right Hip Fluoroscopically Guided Open Reduction And Cephalocortical ( Sliding Cephalic Screw And Barrel Side-Plate) Implant Internal Fixation Of Slightly Displaced And Angulated Proximal Femoral Subcapital Fracture With Oblique Midcervical Extension Following Gentle Closed Optimization Of Cephalofemoral Alignment (Rosendo) 2) Right Hip Intraoperative Fluoroscopic Assessment Of Proximal Femoral Subcapital Fracture With Oblique Midcervical Extension, Initial And Final Optimized Fracture Alignment And Cephalocortical Screw And Side-Plate Fixation ( Rosendo) Pre-Operative Diagnosis: Primary Surgically Treated Diagnoses: 1) Right Hip Slightly Displaced And Angulated Proximal Femoral Subcapital Fracture With Oblique Midcervical Extension Post-Operative Diagnosis: Same as preoperative diagnosis list with the addition of standard postoperative symptomatic and postprocedural status diagnoses Estimated Blood Loss: 50ml to 100ml Surgeon/Meat Counter Clerk: BOBY ROBBINS MD - Primary Consulting Orthopaedic Surgeon Surgical Providers: Boby Robbins M.D. - Orthopaedic Surgeon Anesthesia: general endotracheal tube Monitors: Standard general anesthesia and other perioperative monitoring was performed per anesthesia. Refer to anesthesia records for details. IV Fluids: Standard anesthesia perioperative fluid management was performed without requirement for additional or emergent fluid resuscitation. Refer to anesthesia records for details. Implants: Implants Placed: Right Hip And Proximal Femur Region Implants: [employer] [place] 3 Cephalocortical Fracture Fixation System: [place] 3 System Standard Length Keyed Barrel, 135 degree, 4-hole Cephalocortical Barrel Side-Plate [place] 3 System 100 mm length standard diameter cephalic lag screw [place] 3 System Measurement-Matched Length Bicortical Plate Fixation Screws (Proximal To Distal): 40 mm Bicortical Screw 40 mm Bicortical Screw 38 mm Bicortical Screw 36 mm Bicortical Screw Graft Placed: None Urine Output: Refer to anesthesia records for details. Drains: None Specimens: None Complications: None Operative/Procedure Note Note: Preoperative Holding Area Assessment/Preparation: The patient was transported from the floor to the preoperative holding area where he was evaluated prior to surgery with no clinical changes or contraindications to surgical intervention documented compared to the stable acute postinjury and other longstanding preoperative baseline deficits as documented on preoperative medical admission, orthopaedic consultation and clearance evaluations. His right hip and to a lesser but still significant degree the rest of his right lower extremity range of motion and other neuromusculoskeletal assessments were obviously limited due to pain, instability and potential displacement of his fracture in addition to his underlying cognitive deficits. The patient participated, to the degree possible, in the preanesthesia confirmation ("awake time out"), however the surgical plan and site were primarily confirmed by the surgeon, anesthesia care team and operating room nurses due to the patient's limited ability to understand, recall and confirm details. The side and site of patient reported pain did correspond with that of known pathology and planned intervention. The plan had been confirmed and phone consent obtained from the patient's brotther (acting in his designated role as power of spanisher and medical decision-maker) prior to bringing him to the operating room and final phone consent for both surgery and anesthesia was again obtained by phone from the patient's brother prior to administration of sedation. In addition to standard discussion of options, alternatives, indications, general prognosis, risks and benefits of the planned procedure, the patient's brother clearly understod the high risk of avascular necrosis and potential need for additional later surgery including possible hip replacement. This high risk was felt to be outweighed by the potential benefit of preserving the patient's [place] hip particularly given his likely difficulty following hip precaustions and therefore his likely greater than usual increased risk of hemiarthroplasty. The relative prognosis of each option was discussed and understood. All questions were answered. After appropriate consideration of the relative risks and benefits of each option the patient's brother very reasonably selected internal fixation and accepted the increased associated risks particularly including (but not limited to) the potential need for later revision to hemiarthroplasty. Preoperative paperwork was finalized. The region of the intended surgical site was cleansed, prepped and marked per protocol. Surgical Procedure: The procedure was performed by Dr. Robbins who was present and served as the primary surgeon for all critical intraoperative and perioperative decisions and interventions. Set-Up/Positioning/Exposure - The patient was brought to the operating room in stable condition and underwent uncomplicated spinal anesthesia followed by placement of all appropriate oxygen, monitors, lines, tubes and catheters without difficulty. Adequate spinal anesthetic level and distribution was confirmed prior to the administration of moderate sedation. Prophylactic antibiotic administration of 2 grams of IV Ancef based on patient body mass was performed per orthopaedic surgical open internal fixation fracture care operative protocol and was completed at least 30 and less than 60 minutes prior to making an incision. The patient was positioned supine on the operating traction table in standard fashion for a right closed optimization of alignment and open cephalocortical sliding cephalic lag screw and barrel side plate internal fixation for oblique subcapital to mid- cervical slightly angulated hip fracture taking care to protect and stabilize the hip and lower extremity during transfer, avoid angulation or torsion of the hip during positioning, abduct the left arm on a well padded arm board and adduct the right arm over the torso on a pillow so as to avoid positions of nerve stretch with all pressure points fully padded. Optimal hip joint, osseous fragmant and fracture alignment for internal fixation was achieved with standard positioning and gentle traction with position closely monitored during positioning so as to avoid (or detect if it occurred) and gross temporary malpositioing during this process. No abnormal alignment, rotation or distraction across the fracture line was detected at any time during positioning. Final optimal position, with correction of original flexed angulation, was documented on preincision intraoperative AP, lateral and oblique fluoroscopic spot views. No other unintended or concerning change in fracture alignment, fracture fragment position or orientation was noted compared to preoperative images. Exposure - Sterile prep and drape were performed using standard technique with DuraPrep and an Ioban antimicrobial incise curtain drape. The angle of the femoral neck, entry point for the caphalic lag screw and extent of the primary lateral incision for screw and plate insertion was marked on the skin using a sugical marker following a radioopaque guidepin placed on the surface of the hip region and projected over th e critically localized structures on AP and lateral fluoroscopic images. The surgeon, anesthesia care team, and operating room staff again documented the patient identity, surgical procedure, and operative site as well as other clinical details in a final documented confirmation ( final time out) prior to beginning the procedure. The primary lateral linear incision was then made longitudinally extending proximally from the metadiaphyseal flare of the femir just below the greater trochantic prominence for approximately 5 cm using a #10 scalpel blade. Hemostasis was achieved using Bovie electrocautery beginning with the skin edges of the incision and continuing throughout the procedure where necessary. The dissection was carried down through the subcutaneous layer and the fascia was divided longitudinally at the distal extent in line with the cutaneous incision. This fascial opening was then extended throughout the length of the incision from distal to proximal using Sullivan scissors with a sliding dissection technique. Further subfascial Metzenbaum and digital blunt dissection was carried down the subfascial posterior margin of the vastus lateralus muscle to the posterolateral margin of the proximal diaphyseal femur. Large osteophytes were palpable in the region of the fascial insertion at the posterolateral margin of the femur correlating with the hypertrophic and heterotopic calcification seen on preoperative radiographs but did not appear to project into the area of proposed place fixation and therefore did not require resection or other intervention. Open Cephalocortical (Cephalic Lag Screw And Barrel Side Plate) Construct Internal Fixation - Under fluoroscopic guidance on orthogonal C-arm views, a distally threaded guidepin for the [place] III cannulated cephalic lag screw was advanced from the lateral femoral metadiaphyseal cortical region along an angle parallel but slightly inferior to the central axis of the femoral neck across the fracture line and into the femoral head in the subchondral region. The angle of the guidepin relative to the lateral cortex was estimated to be the normal anatomic cephalocortical angle of 135 degrees and so this plate-barrel angle was selected for the implant. With the guidepin at optimal angulation and in optimal position without any suggestion of penetration past the subchondral level on multi-angle C-arm views and the fracture optimally reduced, a specialized ruler was used to measure the length of the guidepin within the bone from the lateral cortex of the femur to its tip per the subtraction measurement design of the ruler. A standard diameter cephalic lag screw measuring 100 mm in length was selected and attached to the cannulated screwdriver. The cannulated step-cut cortical entry hole drill bit was used to drill the proximal path for the cannulated cephalad screw under frequent fluoroscopic imaging. AP C-arm views monitoring the depth and trajectory of the drill bit and guide pin to insure maintenance of central path in the femoral neck, drill tip depth through the lateral femoral cortical surface without binding or advancement of the guide-pin toward the hip joint surface. The step cut reaming drill was initially only advanced into the base of the femoral neck and was not advanced across the fracture line so as to avoid potential uncontrolled torque force to the femoral head and possible shear roation across the fracture line. Before advancing any agressive rotational force across the fracture, an anti-rotation cannulated screw was placed. With the entry site for the barrel of the side-plate defined, an appropriate entry site (approximately 5-10 mm above the drilled entry site for the barrel of the plate) could be identified with adequate interval of cortical bone for optimal purchase and a second distally threaded guidpin (from the cannulated Asnis III screw set) was advanced from that point parallel to the first just superior to the central axis of the femoral neck with final tip position in the superior head region ~5 mm below the chondral surface. The length of the guidepin within the bone was measured using the subtraction ruler specific to that set and a 95 mm length, 6.5 mm diameter partially threaded screw was selected for implantation. The lateral cortex was drilled with the cannulated drill bit specific to the Asnis set taking care to intermittently monitor fluoroscopically throughout this process so as to avoid, or at least detect early, any binding or unintended advancement of the guidepin. The outer cortex was successfully drilled without binding or pin advancement and the anti- rotation screw selected above was implanted with optimal position and depth as well as excellent distal thread purchase and slight lag effect and added stability provided by abuttment of the screw head to the lateral femoral cortex. Gentle hip rotation showed coplanar motion in all directions thereafter thus significantly limiting any additional risk of displacement rotation or potential surgical mechanical causes for or contributions to increased risk of avascular necrosis. Based on the previously described primary guidepin depth measurement, a standard diameter 100 mm length proximal fixation cannulated caphalic lag screw was selected. Now that the fracture was stabilized the step cut drill could be safely advanced across the fracture line and into the head fragment without significant risk of uncontrolled shear force generation. The above selected cephalic screw was then advanced over the guidepin, through the lateral femoral cortical opening created by the cannulated step-cut drill, and into the femoral neck and head with excellent insertional and final fixation torque (consistent with the patient's young age and hypertrophic findings on radiographs and intraoperative evaluation. Optimal placement and final position of the cephalic screw were documented on AP, lateral and multiple oblique fluoroscopic views to insure that the proper depth was achieved with the superomedial threaded fixation of the distal end of the screw at approximately 1 cm below the chondral surface of the joint and with the inferolateral proximal end of the screw just below the lateral femoral cortex of the femur for optimal fixation within the barrel of the plate while minimizing risk for prominence even in the circumstance of fracture lag effect. The alignment and fixation of both the cephalic lag screw and the anti-rotation screw were confirmed to be optimal on all fluoroscopic views with trajectory parallel to each other and to the central axis of the head and neck for optimal proximal fragment fixation and compression with weightbearing. A 4-hole 135 degree cephalocortical barrel angle plate was selected for implantation and advanced over the cephalic screw after removal of the central guidepins. The plate was impacted against the lateral cortex and held in place with a double-distal/single-proximal armed Isabelle clamp. Optimal position was confirmed on orthogonal fluoroscopic views. Four bicortical screws were placed in the plate using standard technique of bicortical drilling, measuring with a direct depth gauge per its design for this system and placement of an appropriate length screw at each site with excellent purchase and fixation. The [place] clamp was removed and final position of all implants was confirmed to be optimal on multiangle views. Finally, traction was released and the leg was rotated under fluoroscopic imaging to document stable fracture fixation and coplanar singular fracture fragment rotation without any displacement or shear across the fracture line on dynamic radiographic evaluation and without screw penetration too close to the femoral articular surface on multiple angle projections. Final fluoroscopic images were saved and uploaded to the [facility] PACS system prior to closure. Closure/Recovery - The surgical site was thoroughly irrigated and hemostasis was carefully achieved prior to closure. Initial counts were correct. The edges of the tensor and vastus lateralis fascia were reapproximated and closed using running #0 looped Maxon suture. The deep and superficial subcutaneous closure was achieved with #2-0 dyed and #3-0 undyed Vicryl respectively using an inverted, interrupted technique. The cutaneous layer was closed using zenaida with the skin edges everted. A standard, sterile Xeroform, fluff 6x6 gauze and ABD pad dressing was placed with good surgical site coverage and was held in place with foam tape taking care to avoid tension on the skin. All final counts were correct prior to removing the drapes. The foot section of the table was reattached and the patient's lower extremities were removed from the traction table attachments and returned to their neutral resting positions. The postoperative lower extremity alignment was more symmetrical than had been noted preoperatively. Bilateral pulses and capillary refill were confirmed to be normal and similar to preoperative status. The patient was transferred to the hospital bed in the supine position taking care to support the pelvis, hips and lower extremities in the neutral position during transfer. Recovery Room Assessment: The patient was transported to the recovery room in stable condition. Neurological examination of the lower extremities was not possible as the spinal was still in effect. No gross abnormalities in the lower extremities or new deficits elsewhere were evident on recovery room assessment during initial recovery from anesthesia. Gentle log roll of the operative leg was not associated with the same discomfort that he had demonstrated preoperatively and this motion was smooth without crepitus. He will follow the usual postoperative protocol for closed optimization of alignment and open cephalocortical internal fixation of initially angulated but ultimately near-anatomically aligned and overall stable, now well fixed oblique subcapital and femoral neck hip region fracture. This will include early mobilization, supervised transfers and ambulation with progressive protected (walker-assisted) weight-bearing as tolerated and discharge planning in preparation for transfer to inpatient rehabilitation program as patient is an excellent short-term rehabilitation candidate by orthopaedic criterion although there may be some limitations regarding his speed of recovery because of his preoperative cognitive and functional deficits. Discharge Disposition: PACU CC: Rosendo MELGAR,Boby Farnsworth
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
[2018-04-13 09:38] LABS: ABSOLUTE BASOPHIL COUNT 0 /CUMM (0.0-0.2); ABSOLUTE EOSINOPHIL COUNT 0 /CUMM (0.0-0.7); ABSOLUTE LYMPH COUNT 0.5 /CUMM (1.2-3.4); EOSINOPHIL % 0.2 % (0-5); MEAN CORPUSCULAR HGB 32.1 PG (27.0-31.0); MEAN PLATELET VOLUME 9.3 FL (7.4-10.4)
[2018-04-13 09:57] LABS: ABSOLUTE GRANULOCYTE CT 7.2 /CUMM (1.4-6.5); ABSOLUTE MONOCYTE COUNT 0.4 /CUMM (0.10-0.60); BASOPHIL % 0 % (0.0-2.0); MEAN CORPUSCULAR HGB CONC 33.4 G/DL (33.0-37.0); PLATELET COUNT 197 /CUMM (130-400); RBC DISTRIBUTION WIDTH 13.9 % (11.5-14.5); RED BLOOD CELL CT 3.23 /CUMM (4.70-6.10); WHITE BLOOD CELL COUNT 8.2 /CUMM (4.8-10.8)
[2018-04-13 10:24] LABS: GRANULOCYTE % 88.1 % (42.2-75.2)
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
[2018-04-13 13:47] VITALS: BP 144/70
[2018-04-13] MEDS ORDERED: LOVENOX40 MG/0.1 SC (14:40)
--- NOTE | 2018-04-13 14:42 | Patient Discharge Instructions ---
Discharge Instructions General Discharge Information You were seen/treated for: R intertrochanteric fracture You had these procedures: ORIF Special Instructions: Please follow up with your PCP with in a week of discharge. Advised for Mechanical DVT prophylaxis and s/c Heparin for total 4 weeks. Advised fo WBAT with walker and PT or nursing supervision. Advised to follow up in 2 weeks for staple removal and AP/Lat right hip radiographs. Follow up with Dr. Robbins within 1 week of discharge Diet Continue normal diet: Yes Acute Coronary Syndrome Inclusion Criteria At DC or during hospital stay patient has or had the following: ACS DIAGNOSIS No Discharge Core Measures Meds if any: Prescribed or Continued at Discharge Meds if any: NOT Prescribed or Continued at Discharge Congestive Heart Failure Inclusion Criteria At DC or during hospital stay patient has or had the following: CHF DIAGNOSIS No Discharge Core Measures Meds if any: Prescribed or Continued at Discharge Meds if any: NOT Prescribed or Continued at Discharge Cerebrovascular accident Inclusion Criteria At DC or during hospital stay patient has or had the following: CVA/TIA Diagnosis No Discharge Core Measures Meds if any: Prescribed or Continued at Discharge Meds if any: NOT Prescribed or Continued at Discharge Venous thromboembolism Inclusion Criteria VTE Diagnosis No VTE Type NONE VTE Confirmed by (Test) NONE Discharge Core Measures - Per Current guidelines, there needs to be overlap - treatment for the first 5 days of Warfarin therapy. - If discharged on Warfarin prior to 5 days of - overlap therapy, the patient will need to be - assessed for post discharge needs including - *Post discharge parental anticoagulation - *Warfarin and/or parental anticoagulation education - *Follow up date to check INR post discharge At least 5 days overlap therapy as Inpatient No Meds if any: Prescribed or Continued at Discharge Note: Overlap Therapy is Warfarin and Anticoagulant Meds if any: NOT Prescribed or Continued at Discharge
--- NOTE | 2018-04-13 16:03 | RADIOLOGY REPORT ---
EXAMINATION: XR PORTABLE ABDOMEN CLINICAL INFORMATION: Percutaneous gastrotomy tube placement. COMPARISON: None TECHNIQUE: Supine AP view of the abdomen. FINDINGS: There is a catheter over the left upper quadrant of the abdomen. Bowel gas is seen throughout large and small bowel without abnormal dilatation. No evidence of extraluminal gas. There is a large volume of stool in the colon. IMPRESSION: Catheter left upper quadrant of abdomen. Nonobstructive bowel pattern.
[2018-04-13 22:05] VITALS: BP 127/72
[2018-04-14 06:20] VITALS: BP 138/84
[2018-04-14 11:04] LABS: ABSOLUTE BASOPHIL COUNT 0 /CUMM (0.0-0.2); ABSOLUTE EOSINOPHIL COUNT 0.1 /CUMM (0.0-0.7); ABSOLUTE GRANULOCYTE CT 6.1 /CUMM (1.4-6.5); ABSOLUTE LYMPH COUNT 0.5 /CUMM (1.2-3.4); ABSOLUTE MONOCYTE COUNT 0.4 /CUMM (0.10-0.60); BASOPHIL % 0.1 % (0.0-2.0); EOSINOPHIL % 1.2 % (0-5); GRANULOCYTE % 85.7 % (42.2-75.2); HEMATOCRIT 28.3 % (42-52); MEAN CORPUSCULAR HGB 32.5 PG (27.0-31.0); MEAN CORPUSCULAR HGB CONC 34.1 G/DL (33.0-37.0); MEAN CORPUSCULAR VOLUME 95.3 FL (80.0-94.0); MEAN PLATELET VOLUME 9.1 FL (7.4-10.4); PLATELET COUNT 212 /CUMM (130-400); RED BLOOD CELL CT 2.97 /CUMM (4.70-6.10); WHITE BLOOD CELL COUNT 7.2 /CUMM (4.8-10.8)
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
[2018-04-14 15:14] VITALS: BP 120/70
--- NOTE | 2018-04-14 17:12 | PN- Orthopedic ---
Subjective Subjective: comfortable in bed Objective Vital Signs and I&Os Vital Signs Date Time Temp Pulse Resp B/P B/P Pulse O2 O2 Flow FiO2 Mean Ox Delivery Rate 04/14 1514 98.3 97 20 120/70 97 04/14 0620 98.1 89 18 138/84 97 Room Air 04/13 2205 98.4 98 18 127/72 96 Intake & Output 04/14 1600 04/14 0800 04/14 0000 04/13 1600 04/13 0800 04/13 0000 Intake Total 330 590 240 700 525 0 Output Total 300 400 200 300 300 Balance 30 190 40 400 225 0 Intake, IV 20 700 525 Intake, Oral 0 Intake, Tube 150 210 60 Feeding Intake, Tube 180 360 180 Irrigant Number 0 Bowel Movements Output, Urine 300 400 200 300 300 Patient 169 lb Weight Physical Exam: comfortable in bed Wound dressings clean and dry. Calf nontender No rotatory deformities Status post ORIF hip fracture Placement Continue hip fracture protocol Assessment/Plan Assessment/Plan Status post ORIF Core Measures Venous Thromboembolism VTE Risk Factors Age>40 No Mechanical VTE Prophylaxis d/t N/A MechProphylax Ordered No VTE Pharm Prophylaxis d/t Surgical Contraindication Attending MD Review Statement Attending Statement Attending MD Statement: examined this patient
[2018-04-14 23:02] VITALS: BP 136/76
[2018-04-15 06:20] VITALS: BP 129/98
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
[2018-04-15 08:42] LABS: ABSOLUTE BASOPHIL COUNT 0 /CUMM (0.0-0.2); ABSOLUTE EOSINOPHIL COUNT 0.1 /CUMM (0.0-0.7); ABSOLUTE GRANULOCYTE CT 5.5 /CUMM (1.4-6.5); ABSOLUTE LYMPH COUNT 0.5 /CUMM (1.2-3.4); ABSOLUTE MONOCYTE COUNT 0.4 /CUMM (0.10-0.60); BASOPHIL % 0 % (0.0-2.0); EOSINOPHIL % 2.1 % (0-5); GRANULOCYTE % 83.4 % (42.2-75.2); HEMATOCRIT 28.8 % (42-52); MEAN CORPUSCULAR HGB 33.2 PG (27.0-31.0); MEAN CORPUSCULAR HGB CONC 34.9 G/DL (33.0-37.0); MEAN CORPUSCULAR VOLUME 94.9 FL (80.0-94.0); MEAN PLATELET VOLUME 8.9 FL (7.4-10.4); PLATELET COUNT 227 /CUMM (130-400); RBC DISTRIBUTION WIDTH 13.9 % (11.5-14.5); RED BLOOD CELL CT 3.04 /CUMM (4.70-6.10); WHITE BLOOD CELL COUNT 6.6 /CUMM (4.8-10.8)
--- NOTE | 2018-04-15 19:07 | PN- Orthopedic ---
Subjective Subjective: comfortable in bed with no complaints Objective Vital Signs and I&Os Vital Signs Date Time Temp Pulse Resp B/P B/P Pulse O2 O2 Flow FiO2 Mean Ox Delivery Rate 04/15 0620 97.9 93 20 129/98 97 Room Air 04/14 2302 98.0 94 20 136/76 95 Room Air Intake & Output 04/15 1600 04/15 0800 04/15 0000 04/14 1600 04/14 0800 04/14 0000 Intake Total 390 600 120 330 590 240 Output Total 400 300 400 200 Balance -10 600 120 30 190 40 Intake, IV 20 Intake, Tube 210 600 120 150 210 60 Feeding Intake, Tube 180 180 360 180 Irrigant Number 0 Bowel Movements Output, Urine 400 300 400 200 Physical Exam: VSS, afebrile chest- CTA symmetric heart-RRR abdomen -nontender, constipation right hip -dressing, CDI without drainage thigh with mild edema calvse soft and distal pulses intact Assessment/Plan Assessment/Plan POD3 right hip ORIF continue on DVT proph as per medicine He will need follow-up appointment with Dr. Robbins 2 weeks for staple removal continue with PT for return to baseline status Core Measures Venous Thromboembolism VTE Risk Factors Age>40 No Mechanical VTE Prophylaxis d/t N/A MechProphylax Ordered No VTE Pharm Prophylaxis d/t Surgical Contraindication
[2018-04-15 22:33] VITALS: BP 147/86
[2018-04-16 06:39] VITALS: BP 126/80
--- NOTE | 2018-04-16 07:08 | PN- Housestaff ---
Subjective Follow-up For: R intertrochanteric fracture s/p ORIF Subjective: Patient offers no complaints. No acute events overnight. Patient reports a large bowel movement this morning Review of Systems Constitutional: Reports: see HPI. Objective Last 24 Hrs of Vital Signs/I&O Vital Signs Date Time Temp Pulse Resp B/P B/P Pulse O2 O2 Flow FiO2 Mean Ox Delivery Rate 04/16 1245 97.9 100 20 126/80 06/04 0800 Room Air 06/ 0639 97.9 100 20 126/80 96 Room Air /03 2233 98.3 99 20 147/86 97 Room Air Intake & Output 04/16 1600 / 0800 06/ 0000 Intake Total 920 Output Total 300 Balance 620 Intake, Tube 560 Feeding Intake, Tube 360 Irrigant Output, Stool 100 Output, Urine 200 Physical Exam General Appearance: Alert, Oriented X3, Cooperative, No Acute Distress Cardiovascular: Regular Rate, Normal S1, Normal S2 Lungs: Clear to Auscultation, Normal Air Movement Abdomen: Normal Bowel Sounds, Soft, No Tenderness Extremities: R limited ROM, no drainage seen Assessment/Plan Assessment: Mr. 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 Patient stated that he slipped and fell on his right hip Problem list: #R intertrochanteric fracture s/p ORIF Plan: Continue PO Phenytoin Pain: morphine, Tylenol Appreciate Ortho recommendations DVT prophylaxis-subcutaneous heparin (Surgery does not have any AC preferences, up to medical team) GI prophylaxis-Protonix IV when necessary diet-Jevity 1.5 @ goal 70 full code Patient's brother Agustin is a conservator Dispo: STR Problem List: 1. Intertrochanteric fracture of right hip Pain Ratin Pain Location: NA Pain Goal: Remain pain free Pain Plan: NA Tomorrow's Labs & Rationales: none
[2018-04-16] MEDS ORDERED: MIRALAX119 GM PO (09:19)
[2018-04-16] MEDS ORDERED: LOVENOX40 MG/0.1 SC (09:21)
--- NOTE | 2018-04-16 11:08 | PN- Att Addend ---
Attending Addendum Attending Brief Note Patient seen and examined, overall feels okay. She getting oral morphine for pain control. Pain is managed reasonably. Except that this morning it was scoring high. Patient can be switched to oral Percocet. He did have a bowel movement yesterday and he is otherwise medically stable for discharge to rehabilitation today. Rest of his home medications and tube feeds will be continued. He will be dischrged to [facility] today.
[2018-04-16 12:45] VITALS: BP 126/80
== END 2018-04-16 13:15 | DRG 482 ==
LOC: ERH 18:20 → ERHI 22:48 → 2NA 22:48 → ENRESERV 23:56 → 2NA 04-12 00:47 → ENTRNSPT 04-12 21:15 → EDTRNSPTSTS 04-12 21:19 → EDTRNSPT 04-12 21:19 → CMPTRNSPT 04-12 21:42 → ENPENDDIS 04-16 11:05 → 2NA 04-16 13:15
PROVIDERS: Internal Medicine; Internal Medicine Endocrinology, Diabetes & Metabolism; Physician Assistant; Student in an Organized Health Care Education/Training Program
PROC: 0QS604Z Reposition Right Upper Femur with Internal Fixation Device, Open Approach (ICD-10-PCS; principal; 2018-04-12)
DX: S72.141A Displaced intertrochanteric fracture of right femur, initial encounter for closed fracture (principal); Z87.820 Personal history of traumatic brain injury; H54.7 Unspecified visual loss; F20.9 Schizophrenia, unspecified; R91.1 Solitary pulmonary nodule; G40.909 Epilepsy, unspecified, not intractable, without status epilepticus; Z85.01 Personal history of malignant neoplasm of esophagus; Z92.3 Personal history of irradiation; Z92.21 Personal history of antineoplastic chemotherapy; W18.30XA Fall on same level, unspecified, initial encounter; Y92.099 Unspecified place in other non-institutional residence as the place of occurrence of the external cause; Z91.81 History of falling; Z79.891 Long term (current) use of opiate analgesic; Z79.51 Long term (current) use of inhaled steroids
CPT/HCPCS: 2NAP; ERO; 36415; 36592; 71045; 72170; 73502-RT; 73562-RT; 74018; 81001; 82436; 87086; 93005; 93010; 96374; 97116-GO; 97162-GP; 97530-GO; J0131; J0690; J1165; J1644; J1650; J1885; J3490

== ENCOUNTER 2018-06-05 07:43 | Emergency (ER) | payer OTHER, MEDICARE ==
[~2018-06-05] VITALS: Ht 182.9 cm; Wt 77.1 kg
[~2018-06-05 07:43] MED LIST changes: +DILANTIN-1125 MG/51 PEG; +LOVENOX40 MG/0.1 SC; +MIRALAX119 GM PO
[2018-06-05] MEDS ORDERED: FERROUS SU220 MG/51 PEG (08:09)
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
--- NOTE | 2018-06-05 09:13 | CT SCAN REPORT ---
EXAMINATION: CT OF THE HEAD WITHOUT CONTRAST CT OF THE CERVICAL SPINE WITHOUT CONTRAST CLINICAL INFORMATION: Fall with head strike. Trauma. COMPARISON: CT head and cervical spine dated 04/08/2018. TECHNIQUE: Contiguous axial imaging was performed from the skullbase to vertex without intravenous administration of contrast. Coronal reformations of the head were obtained. Contiguous axial imaging was then performed from the skull base down to the thoracic inlet. Coronal and sagittal reformations of the cervical spine were obtained. DLP: 973.68 mGy-cm. FINDINGS: CT scan of the head: There is no evidence of acute intracranial hemorrhage or territorial infarction. No abnormal mass-effect or midline shift is seen. No extra-axial fluid collections are identified. As noted previously, the patient has undergone craniotomy and cranioplasty. There is severe encephalomalacia, volume loss and gliosis seen involving the frontal lobes bilaterally with ex vacuo dilatation of the frontal horns of the lateral ventricles, unchanged from prior exam. There is also small focus of encephalomalacia seen in the posterior high left parietal lobe, unchanged. There is postsurgical changes seen in the craniofacial structures related to prior oral squamous cell carcinoma treatment. There is opacification of the left mastoid air cells and the left middle ear, unchanged. The right mastoid air cells are well aerated. Small amount of dependent edema is seen in the right sphenoid sinus. CT scan of the cervical spine: No evidence of acute fracture or dislocation. Craniocervical junction and atlantoaxial articulations are intact. Prevertebral soft tissues are normal in thickness. Craniocervical junction and atlantoaxial articulations are intact. There is a reversal of the normal cervical lordosis. Severe degenerative disc disease is seen at C5-C6 with near complete loss of the disc space height, vertebral endplate sclerosis, spurring and cystic changes. Moderate degenerative disc disease is noted at C4-C5 and mild degenerative disc disease at the remaining cervical levels. The included soft tissues of the neck are unremarkable. Again seen are prominent pleural-based reticular opacities and cystic spaces in the lung apices bilaterally, unchanged, likely due to scarring. There is a small amount of dependent edema in the sphenoid sinus. IMPRESSION: CT scan of the head: No acute intracranial pathology. Chronic changes in the head and craniofacial structures, presumably related to prior treatment of patient's oral squamous cell carcinoma. Chronic opacification of the left mastoid air cells and left middle ear. CT scan of the cervical spine: No evidence of cervical spine fracture. Reversal of normal cervical lordosis and diffuse degenerative disc disease in the cervical spine, most severe at C5-C6. Similar findings were noted previously. Incidental finding of biapical lung parenchymal scarring and small amount of dependent edema in the sphenoid sinus.
[2018-06-05 09:30] VITALS: BP 126/71
== END 2018-06-05 09:31 ==
LOC: ERH 07:43
DX: S09.90XA Unspecified injury of head, initial encounter (principal); W01.0XXA Fall on same level from slipping, tripping and stumbling without subsequent striking against object, initial encounter
CPT/HCPCS: 73502-RT

== ENCOUNTER 2018-06-19 14:24 | Observation (INO) | payer OTHER, MEDICARE ==
[~2018-06-19 14:24] MED LIST changes: +FERROUS SU220 MG/51 PEG
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
[2018-06-19 18:51] LABS: PT 12.7 SEC (9.4-12.5)
[2018-06-19 18:57] LABS: ABSOLUTE BASOPHIL COUNT 0 /CUMM (0.0-0.2); ABSOLUTE EOSINOPHIL COUNT 0.1 /CUMM (0.0-0.7); ABSOLUTE GRANULOCYTE CT 7.3 /CUMM (1.4-6.5); ABSOLUTE LYMPH COUNT 0.6 /CUMM (1.2-3.4); ABSOLUTE MONOCYTE COUNT 0.4 /CUMM (0.10-0.60); BASOPHIL % 0.2 % (0.0-2.0); EOSINOPHIL % 1.1 % (0-5); HEMATOCRIT 38.8 % (42-52); MEAN CORPUSCULAR HGB 31.9 PG (27.0-31.0); MEAN CORPUSCULAR HGB CONC 33.8 G/DL (33.0-37.0); MEAN CORPUSCULAR VOLUME 94.5 FL (80.0-94.0); PLATELET COUNT 410 /CUMM (130-400); RBC DISTRIBUTION WIDTH 15.6 % (11.5-14.5); WHITE BLOOD CELL COUNT 8.4 /CUMM (4.8-10.8)
[2018-06-19 19:29] LABS: GRANULOCYTE % 86.4 % (42.2-75.2)
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
[2018-06-20 12:14] VITALS: BP 146/94
== END 2018-06-20 12:05 ==
LOC: ERH 14:24 → ERHI 20:00
PROVIDERS: Student in an Organized Health Care Education/Training Program
DX: Z43.1 Encounter for attention to gastrostomy (principal); F20.9 Schizophrenia, unspecified; Z87.820 Personal history of traumatic brain injury; G40.909 Epilepsy, unspecified, not intractable, without status epilepticus; Z85.819 Personal history of malignant neoplasm of unspecified site of lip, oral cavity, and pharynx; H54.7 Unspecified visual loss
CPT/HCPCS: 6090; 96374; 96376; G0378; J1165; J2001; J7042

== ENCOUNTER 2018-06-21 09:51 | Emergency (ER) | payer OTHER, MEDICARE ==
[~2018-06-21] VITALS: Ht 195.6 cm; Wt 72.1 kg
[2018-06-21 09:57] VITALS: BP 129/86
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
== END 2018-06-21 10:48 ==
LOC: ERH 09:51
DX: K94.29 Other complications of gastrostomy (principal)

== ENCOUNTER 2018-07-20 17:17 | Inpatient (IN) | payer OTHER, MEDICARE ==
[~2018-07-20] VITALS: Ht 182.9 cm; Wt 78.9 kg
[~2018-07-20 17:17] MED LIST changes: +DILANTIN-1125 MG/51 G TUBE; -DILANTIN-1125 MG/51 PEG
[2018-07-20] MEDS ORDERED: OLANZAPINE15 M1 G TUBE (17:57)
[2018-07-20] MEDS ORDERED: TRAZODONE HCL50 M1 G TUBE (17:59)
[2018-07-20] MEDS ORDERED: MAPAP325 M1 G TUBE (18:00)
[2018-07-20] MEDS ORDERED: VENTOLIN HFA18 GM INH (18:01)
--- NOTE | 2018-07-20 19:06 | RADIOLOGY REPORT ---
EXAMINATION: XR CHEST CLINICAL INFORMATION: Weakness COMPARISON: 04/12/2018 TECHNIQUE: 2 views of the chest were obtained. FINDINGS: There is a small approximately 15 % right apical pneumothorax. No evidence for any tension pneumothorax. Scarring and probable blebs right apex. No pleural disease otherwise. Left lung clear. No osseous abnormality. IMPRESSION: Smaller right apical pneumothorax. This critical result was discussed with Dr. Cuello at 6:55 PM on 07/20/2018 and it was ascertained that the content and urgency of the report was understood at the time of direct communication.
[2018-07-20 19:18] LABS: ABSOLUTE BASOPHIL COUNT 0 /CUMM (0.0-0.2); ABSOLUTE EOSINOPHIL COUNT 0.5 /CUMM (0.0-0.7); ABSOLUTE GRANULOCYTE CT 8.3 /CUMM (1.4-6.5); ABSOLUTE LYMPH COUNT 0.7 /CUMM (1.2-3.4); ABSOLUTE MONOCYTE COUNT 0.5 /CUMM (0.10-0.60); BASOPHIL % 0.2 % (0.0-2.0); EOSINOPHIL % 5.1 % (0-5); GRANULOCYTE % 82.5 % (42.2-75.2); HEMATOCRIT 41.2 % (42-52); MEAN CORPUSCULAR HGB 30.3 PG (27.0-31.0); MEAN CORPUSCULAR HGB CONC 32.5 G/DL (33.0-37.0); MEAN PLATELET VOLUME 8.4 FL (7.4-10.4); PLATELET COUNT 440 /CUMM (130-400); RBC DISTRIBUTION WIDTH 15.2 % (11.5-14.5); RED BLOOD CELL CT 4.43 /CUMM (4.70-6.10); WHITE BLOOD CELL COUNT 10.1 /CUMM (4.8-10.8)
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
--- NOTE | 2018-07-20 22:05 | CT SCAN REPORT ---
EXAM: CT scan of the head, facial bones and cervical spine. INDICATION: Reason for Study:
Presumptive Dx: head injury
Signs Symptoms: head injury
TECHNIQUE: A noncontrast CT scan was performed from the skull base to the vertex. A noncontrast CT scan of the facial bones and cervical spine was performed from the base of the skull through T1 at 2.5 mm and 1.25 mm collimation. Coronal and sagittal reformats were obtained at the acquisition workstation. Dose length product is 1714 mGy-cm. COMPARISON: 06/05/2018 FINDINGS: Head: Since the baseline, patient has developed small subdural hygromas bilaterally right greater than left. No severe mass effect. Extensive ethmoid shadow and expected dilatation of the frontal horns of the ventricular system appears similar. Frontal bone postsurgical changes noted. There is no evidence of acute intracranial hemorrhage or territorial infarction. Leyva-white matter differentiation is preserved. No abnormal mass effect or midline shift. No extra-axial fluid collection. Proportional prominence of the ventricles and sulcal spaces. No acute osseous or soft tissue abnormalities. The mastoid air cells and visualized portions of the paranasal sinuses are notable for diffuse cortical disease of the left mastoid air cells. Minor sphenoid sinus disease. Cervical Spine: The atlantooccipital and atlantoaxial articulations remain well aligned. Reversal of the normal cervical lordosis. Ossification of the nuchal ligaments posteriorly at C5-C6. Severe disc space narrowing C5-C6. Otherwise, there is anatomic alignment of the vertebral bodies and posterior elements. No evidence of acute fracture or subluxation. The vertebral body heights and disc spaces are maintained. There is no prevertebral soft tissue swelling. The thyroid gland and remaining cervical soft tissues are normal in appearance. The lung apices notable for small right apical pneumothorax. Severe scarring both apices similar to baseline. Facial bones: No acute deformity. Posttreatment changes appear similar. Notable soft tissue swelling along the right malar location. Slight anterior subluxation of the right temporal manubrial joint. IMPRESSION: No acute intracranial pathology. Extensive chronic findings similar to baseline. Slightly increasing subdural hygromas which remains small minimally increased without severe mass effect. Right apical small pneumothorax. This critical result was discussed with Dr. Perez at 9:55 PM on 09/19/2018 and it was ascertained that the content and urgency of the report was understood at the time of direct communication.
[2018-07-20 23:03] VITALS: BP 120/95
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
[2018-07-21 06:24] VITALS: BP 138/88
[2018-07-21 08:23] LABS: ABSOLUTE BASOPHIL COUNT 0 /CUMM (0.0-0.2); ABSOLUTE EOSINOPHIL COUNT 0.3 /CUMM (0.0-0.7); ABSOLUTE GRANULOCYTE CT 8.1 /CUMM (1.4-6.5); ABSOLUTE LYMPH COUNT 0.5 /CUMM (1.2-3.4); ABSOLUTE MONOCYTE COUNT 0.4 /CUMM (0.10-0.60); BASOPHIL % 0.1 % (0.0-2.0); EOSINOPHIL % 3.3 % (0-5); GRANULOCYTE % 86.4 % (42.2-75.2); HEMATOCRIT 41.9 % (42-52); MEAN CORPUSCULAR HGB 30.9 PG (27.0-31.0); MEAN CORPUSCULAR HGB CONC 32.9 G/DL (33.0-37.0); MEAN CORPUSCULAR VOLUME 93.7 FL (80.0-94.0); MEAN PLATELET VOLUME 8.5 FL (7.4-10.4); PLATELET COUNT 416 /CUMM (130-400); RBC DISTRIBUTION WIDTH 15.4 % (11.5-14.5); RED BLOOD CELL CT 4.47 /CUMM (4.70-6.10)
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
[2018-07-21 09:42] LABS: WHITE BLOOD CELL COUNT 9.4 /CUMM (4.8-10.8)
[2018-07-21 14:37] VITALS: BP 140/78
--- NOTE | 2018-07-21 16:17 | RADIOLOGY REPORT ---
EXAMINATION: XR CHEST CLINICAL INFORMATION: Pneumothorax. COMPARISON: 07/20/2018. TECHNIQUE: AP and lateral views of the right chest FINDINGS: Right apical pneumothorax is not appreciably changed in size as compared to the prior study allowing for differences in projection. No evidence of tension pneumothorax. Pleural parenchymal scarring is present at the left lung apex. No consolidation no pleural effusion. Cardiac and mediastinal contours are normal. No acute osseous findings. IMPRESSION: No significant change in the right apical pneumothorax
[2018-07-21 21:11] VITALS: BP 124/84
[2018-07-22 06:21] VITALS: BP 110/64
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
[2018-07-22 13:48] VITALS: BP 120/68
[2018-07-22 21:19] VITALS: BP 123/80
[2018-07-23 06:39] VITALS: BP 118/67
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
--- NOTE | 2018-07-23 10:26 | RADIOLOGY REPORT ---
EXAMINATION: XR CHEST CLINICAL INFORMATION: Follow-up of right apical pneumothorax. COMPARISON: Multiple prior chest x-rays, most recent of which is dated 07/21/2018. TECHNIQUE: 2 views of the chest were obtained on 3 images. FINDINGS: No significant change in small right apical pneumothorax is seen. The lungs are otherwise symmetrically expanded. Small nodular densities projected over the lower lungs are consistent with nipple shadows. Mild linear subsegmental atelectasis is seen in the left lung base. No focal consolidation, pleural effusion or pulmonary edema is seen. Mild left apical pleural parenchymal scarring again noted. The cardiac mediastinal silhouette is normal. Bony structures are unremarkable. IMPRESSION: No change in small right apical pneumothorax.
[2018-07-23 14:00] VITALS: BP 110/61
--- NOTE | 2018-07-23 15:44 | Patient Discharge Instructions ---
Discharge Instructions General Discharge Information You were seen/treated for: Unsteadiness causing falls Special Instructions: Please follow up with your PCP within 1 week of discharge. Acute Coronary Syndrome Inclusion Criteria At DC or during hospital stay patient has or had the following: ACS DIAGNOSIS No Discharge Core Measures Meds if any: Prescribed or Continued at Discharge Meds if any: NOT Prescribed or Continued at Discharge Congestive Heart Failure Inclusion Criteria At DC or during hospital stay patient has or had the following: CHF DIAGNOSIS No Discharge Core Measures Meds if any: Prescribed or Continued at Discharge Meds if any: NOT Prescribed or Continued at Discharge Cerebrovascular accident Inclusion Criteria At DC or during hospital stay patient has or had the following: CVA/TIA Diagnosis No Discharge Core Measures Meds if any: Prescribed or Continued at Discharge Meds if any: NOT Prescribed or Continued at Discharge Venous thromboembolism Inclusion Criteria VTE Diagnosis No VTE Type NONE VTE Confirmed by (Test) NONE Discharge Core Measures - Per Current guidelines, there needs to be overlap - treatment for the first 5 days of Warfarin therapy. - If discharged on Warfarin prior to 5 days of - overlap therapy, the patient will need to be - assessed for post discharge needs including - *Post discharge parental anticoagulation - *Warfarin and/or parental anticoagulation education - *Follow up date to check INR post discharge At least 5 days overlap therapy as Inpatient No Meds if any: Prescribed or Continued at Discharge Note: Overlap Therapy is Warfarin and Anticoagulant Meds if any: NOT Prescribed or Continued at Discharge
[2018-07-23 21:54] VITALS: BP 130/80
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
[2018-07-24 06:45] VITALS: BP 120/80
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
[2018-07-24 14:40] VITALS: BP 122/81
[2018-07-24 21:30] VITALS: BP 117/70
[2018-07-25 06:43] VITALS: BP 130/82
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
[2018-07-25 14:07] VITALS: BP 128/82
[2018-07-25 14:44] VITALS: BP 128/82
== END 2018-07-25 16:15 | DRG 92 ==
LOC: ERH 17:17 → 2NB 21:21 → ERHI 21:21 → ENTRNSPT 22:22 → EDTRNSPTSTS 22:24 → EDTRNSPT 22:24 → 2NB 22:36 → CMPTRNSPT 22:44 → 2NB 23:16 → ENPENDDIS 07-25 14:16 → 2NB 07-25 16:15
PROVIDERS: Emergency Medicine; Student in an Organized Health Care Education/Training Program
DX: R26.9 Unspecified abnormalities of gait and mobility (principal); J95.811 Postprocedural pneumothorax; Z87.820 Personal history of traumatic brain injury; H54.7 Unspecified visual loss; F20.9 Schizophrenia, unspecified; S00.81XA Abrasion of other part of head, initial encounter; W17.89XA Other fall from one level to another, initial encounter; Z91.81 History of falling; Y83.9 Surgical procedure, unspecified as the cause of abnormal reaction of the patient, or of later complication, without mention of misadventure at the time of the procedure; S01.21XA Laceration without foreign body of nose, initial encounter; R45.87 Impulsiveness; Z85.01 Personal history of malignant neoplasm of esophagus; Z93.1 Gastrostomy status
CPT/HCPCS: 2NSBP; 36592; 71046; 73130-RT; 81001; 82436; 93005; 93010; 97116-GO; 97162-GP; 97530-GO; J0131; J2550; J3490; J7042